=== PATIENT | female | born 1960 | race African-American/Black ===

== ENCOUNTER 2016-08-31 22:57 | Emergency (ER) | payer MEDICARE, OTHER ==
[~2016-08-31] VITALS: Ht 157.5 cm; Wt 118.4 kg
[~2016-08-31 22:57] MED LIST: AMLO10TA2 PO; ASPI81CH43 PO; Atorvastatin Calcium PO; BACL20TA PO; CAR3125T PO; CLOP75TA28 PO; ENA2.5T PO; FAM20T PO; FLUO20CA19 PO; FOLITAB45 OR; FURO40TA4 PO; GAB300C PO; HYDR-2601 PO; LOR05T PO; TRAM50TA2 PO
[2016-09-01 00:37] LABS: Basophils # (auto) 0.1 uL; Basophils % (auto) 1.3 % (0.0-2.0); DEFINITIVE VIEW TRANSMISSION; Eosinophils # (auto) 0.1 uL; Eosinophils % (auto) 0.9 % (0.0-7.0); Hemoglobin 12.2 g/dL (12.2-16.2); Lymphocytes # (auto) 2.7 uL; Lymphocytes % (auto) 34.6 % (10.0-50.0); Mean Corpuscular Hemoglobin 26.8 pg (28.0-32.0); Mean Corpuscular Hgb Conc. 31.3 g/dL (32.0-36.0); Mean Corpuscular Volume 85.6 fL (80.0-100.0); Mean Platelet Volume 10.9 fL (7.4-10.4); Monocytes # (auto) 0.5 uL; Monocytes % (auto) 6.7 % (0.0-12.0); Neutrophils # (auto) 4.3 uL; Neutrophils % (auto) 56.5 % (37.0-80.0); Platelet Count (auto) 260 10^3/uL (140-450); Red Cell Distribution Width 13.9 % (11.6-16.0); White Blood Cell 7.7 10^3/uL (4.4-10.8)
[2016-09-01 00:54] LABS: Albumin 2.9 g/dL (3.4-5.0); BUN/Creatinine Ratio 11.6; Calcium 8.7 mg/dL (8.5-10.1); Magnesium 1.8 mg/dL (1.6-2.6)
[2016-09-01 00:57] LABS: Bilirubin, Total 0.2 mg/dL (0.2-1.0); Total Protein 6.7 g/dL (6.4-8.2)
[2016-09-01] MEDS ORDERED: HYDROmorphone HCL 2 MG/ML VL IV ONE (02:00)
[2016-09-01] MEDS ORDERED: ONDANSETRON HCL 4 MG/2 ML VIAL IV ONE (02:00)
[2016-09-01] MEDS ORDERED: diphenhdrAMINE HCL 50 MG/1 ML VL IV ONE (02:00)
[2016-09-01 02:07] LABS: INR 0.96 (0.9-1.15); Partial Thromboplastin Time 27.6 sec (22.64-33.71); Prothrombin Time 9.9 sec (9.37-12.3)
[2016-09-01 02:13] LABS: B-Type Natriuretic Peptide 91.24 pg/mL (0-100); Temperature: 21.2 C (20.0-25.0)
[2016-09-01 03:05] VITALS: BP 152/97
[2016-09-01 04:04] LABS: Urine Bilirubin Negative (Negative); Urine Blood TRACE /uL (Negative); Urine Ketone Negative (Negative); Urine Mucus FEW (None Seen); Urine Nitrite Negative (Negative); Urine RBC 9 /hpf (0 - 4); Urine Squamous Epithelial Cell FEW /hpf (<5); Urine Urobilinogen Normal (Negative); Urine WBC Clumps PRESENT /hpf (None Seen); Urine pH 5.5 (5.0-8.0)
[2016-09-01 04:06] LABS: Urine Color Straw (Yellow); Urine Glucose 4+ mg/dL (Normal)
== END 2016-09-01 03:56 | disposition home or self-care (01) ==
LOC: EDBD 22:57 → ER 23:05
DX: R07.89 Other chest pain (principal); K29.70 Gastritis, unspecified, without bleeding; E11.65 Type 2 diabetes mellitus with hyperglycemia; R60.0 Localized edema; I25.2 Old myocardial infarction; Z86.73 Personal history of transient ischemic attack (TIA), and cerebral infarction without residual deficits; J44.9 Chronic obstructive pulmonary disease, unspecified; I50.9 Heart failure, unspecified; E11.22 Type 2 diabetes mellitus with diabetic chronic kidney disease; N18.9 Chronic kidney disease, unspecified; E78.5 Hyperlipidemia, unspecified; E66.01 Morbid (severe) obesity due to excess calories; Z68.42 Body mass index [BMI] 45.0-49.9, adult; E78.00 Pure hypercholesterolemia, unspecified; Z79.899 Other long term (current) drug therapy; Z79.82 Long term (current) use of aspirin
CPT/HCPCS: 36415; 71010; 80053; 81001; 83735; 83880; 84484; 85025; 85610; 85730; 93005; 96374; 96375; 99285; G0434; J1170; J1200; J2405

== ENCOUNTER 2017-02-27 21:14 | Emergency (ER) | payer MEDICARE, OTHER ==
[~2017-02-27] VITALS: Ht 157.5 cm; Wt 117.9 kg
[~2017-02-27 21:14] MED LIST changes: -GAB300C PO; +GABA-497 PO
[2017-02-27 21:58] LABS: Basophils # (auto) 0 uL; Basophils % (auto) 0.4 % (0.0-2.0); CONDITION Y; Eosinophils # (auto) 0.1 uL; Eosinophils % (auto) 0.5 % (0.0-7.0); Hematocrit 41.5 % (36.0-46.0); Hemoglobin 13.6 g/dL (12.2-16.2); Lymphocytes # (auto) 3.3 uL; Lymphocytes % (auto) 29.6 % (10.0-50.0); Mean Corpuscular Hemoglobin 27.8 pg (28.0-32.0); Mean Corpuscular Hgb Conc. 32.8 g/dL (32.0-36.0); Mean Corpuscular Volume 84.7 fL (80.0-100.0); Mean Platelet Volume 10.6 fL (7.4-10.4); Monocytes # (auto) 0.8 uL; Neutrophils # (auto) 6.9 uL; Neutrophils % (auto) 62.5 % (37.0-80.0); Platelet Count (auto) 310 10^3/uL (140-450); Red Cell Distribution Width 15.4 % (11.6-16.0)
[2017-02-27] MEDS ORDERED: SODIUM CHLORIDE 0.9% 1,000 ML IV ONE (22:00)
[2017-02-27 22:11] LABS: Albumin 3.4 g/dL (3.4-5.0); BUN/Creatinine Ratio 17.6; Calcium 9.2 mg/dL (8.5-10.1); Potassium 3.8 mmol/L (3.5-5.1)
[2017-02-27 22:14] LABS: Bilirubin, Total 0.5 mg/dL (0.2-1.0); Total Protein 7.8 g/dL (6.4-8.2)
[2017-02-27 22:43] VITALS: BP 138/75
[2017-02-27 23:48] LABS: INR 0.96 (0.9-1.15); Partial Thromboplastin Time 29.9 sec (22.64-33.71); Prothrombin Time 10.5 sec (9.37-12.3)
== END 2017-02-28 00:47 | disposition home or self-care (01) ==
LOC: EDBD 21:14 → ER 21:25
DX: N93.8 Other specified abnormal uterine and vaginal bleeding (principal); N95.0 Postmenopausal bleeding; I11.0 Hypertensive heart disease with heart failure; I25.10 Atherosclerotic heart disease of native coronary artery without angina pectoris; I50.9 Heart failure, unspecified; N18.9 Chronic kidney disease, unspecified; J44.9 Chronic obstructive pulmonary disease, unspecified; E11.9 Type 2 diabetes mellitus without complications; E78.5 Hyperlipidemia, unspecified; I25.2 Old myocardial infarction; Z79.899 Other long term (current) drug therapy; M32.9 Systemic lupus erythematosus, unspecified
CPT/HCPCS: 36415; 80053; 82962; 85025; 85610; 85730; 86850; 86900; 86901; 94761

== ENCOUNTER 2017-03-24 13:59 | Inpatient (IN) | payer MEDICARE ==
[~2017-03-24] VITALS: Ht 157.5 cm; Wt 132.5 kg
[2017-03-24 16:12] VITALS: BP 161/81
[2017-03-24] MEDS ORDERED: MORPHINE SULF INJ 2 MG/ML SYRINGE 1ML IV PRN (16:45)
[2017-03-24] MEDS ORDERED: NITROGLYCERIN 0.4 MG SL TAB SL PRN (16:45)
[2017-03-24] MEDS ORDERED: IBUP800T24 PO (17:13)
[2017-03-24] MEDS ORDERED: PERCOT PO (17:13)
[2017-03-24] MEDS ORDERED: PROM25TA5 OR (17:13)
[2017-03-24] MEDS ORDERED: DULA1INJ SC (17:13)
[2017-03-24] MEDS ORDERED: INSUINJ37 SUBCUT (17:13)
[2017-03-24] MEDS ORDERED: METF-370 PO (17:13)
[2017-03-24 17:45] LABS: Basophils # (auto) 0 uL; Basophils % (auto) 0.4 % (0.0-2.0); CONDITION Y; Eosinophils # (auto) 0 uL; Eosinophils % (auto) 0.4 % (0.0-7.0); Hematocrit 35.3 % (36.0-46.0); Hemoglobin 11.7 g/dL (12.2-16.2); Lymphocytes # (auto) 3.1 uL; Lymphocytes % (auto) 27.6 % (10.0-50.0); Mean Corpuscular Hemoglobin 28.2 pg (28.0-32.0); Mean Corpuscular Hgb Conc. 33.1 g/dL (32.0-36.0); Mean Corpuscular Volume 85.2 fL (80.0-100.0); Mean Platelet Volume 10.1 fL (7.4-10.4); Monocytes # (auto) 0.6 uL; Monocytes % (auto) 5.7 % (0.0-12.0); Neutrophils # (auto) 7.5 uL; Neutrophils % (auto) 65.9 % (37.0-80.0); Platelet Count (auto) 285 10^3/uL (140-450); Red Cell Distribution Width 14.9 % (11.6-16.0); White Blood Cell 11.4 10^3/uL (4.4-10.8)
[2017-03-24 18:00] LABS: INR 0.98 (0.9-1.15); Partial Thromboplastin Time 28.1 sec (22.64-33.71); Prothrombin Time 10.7 sec (9.37-12.3)
[2017-03-24 18:03] LABS: Albumin 2.9 g/dL (3.4-5.0); Calcium 8.6 mg/dL (8.5-10.1); Potassium 3.4 mmol/L (3.5-5.1)
[2017-03-24 18:07] LABS: Bilirubin, Total 0.4 mg/dL (0.2-1.0)
[2017-03-24] MEDS ORDERED: FUROSEMIDE 40 MG TAB PO SCH (18:15)
[2017-03-24] MEDS ORDERED: FUROSEMIDE 20 MG TAB PO SCH (18:15)
[2017-03-24] MEDS ORDERED: BISACODYL 5 MG EC TAB PO PRN ×2 (21:00→21:09)
[2017-03-24] MEDS ORDERED: LORazepam 0.5 MG TAB PO SCH (22:00)
[2017-03-24] MEDS ORDERED: FAMOTIDINE 20 MG TAB PO SCH (22:00)
[2017-03-24 22:08] VITALS: BP 169/85
[2017-03-24] MEDS: BACLOFEN 10 MG TAB PO SCH (22:32)
[2017-03-24] MEDS: ATORVASTATIN 20 MG TAB PO SCH (22:32)
[2017-03-24] MEDS: GABAPENTIN 300 MG CAP PO SCH (22:32)
[2017-03-24] MEDS: OXYCODONE W/ ACETAMINOPHEN 5/325MG TABLET PO PRN (22:36)
[2017-03-24] MEDS: PROMETHAZINE HCL 6.25 MG/5 ML ORAL SYRUP PO SCH (23:45)
[2017-03-24] MEDS: SODIUM CHLORIDE 0.9% 1,000 ML IV SCH (23:45)
[2017-03-24] MEDS: DIAZEPAM 2 MG TAB PO SCH (23:54)
[2017-03-25] MEDS ORDERED: DIAZ2TAB PO (00:27)
[2017-03-25 05:23] VITALS: BP 129/78
[2017-03-25] MEDS: GABAPENTIN 300 MG CAP PO SCH ×3 (05:25→21:56)
[2017-03-25] MEDS: BACLOFEN 10 MG TAB PO SCH ×3 (05:25→21:57)
[2017-03-25 05:52] LABS: Basophils # (auto) 0 uL; Basophils % (auto) 0.3 % (0.0-2.0); CONDITION Y; Eosinophils # (auto) 0.1 uL; Eosinophils % (auto) 0.8 % (0.0-7.0); Hematocrit 33.6 % (36.0-46.0); Hemoglobin 11.2 g/dL (12.2-16.2); Lymphocytes # (auto) 3.4 uL; Lymphocytes % (auto) 36.2 % (10.0-50.0); Mean Corpuscular Hemoglobin 28.8 pg (28.0-32.0); Mean Corpuscular Hgb Conc. 33.3 g/dL (32.0-36.0); Mean Corpuscular Volume 86.5 fL (80.0-100.0); Monocytes # (auto) 0.6 uL; Monocytes % (auto) 6.4 % (0.0-12.0); Neutrophils # (auto) 5.4 uL; Neutrophils % (auto) 56.3 % (37.0-80.0); Platelet Count (auto) 247 10^3/uL (140-450); Red Cell Distribution Width 14.9 % (11.6-16.0); White Blood Cell 9.5 10^3/uL (4.4-10.8)
[2017-03-25 06:04] LABS: INR 0.98 (0.9-1.15); Partial Thromboplastin Time 28.9 sec (22.64-33.71); Prothrombin Time 10.7 sec (9.37-12.3)
[2017-03-25 06:11] LABS: Albumin 2.7 g/dL (3.4-5.0); BUN/Creatinine Ratio 11.8; Calcium 8.3 mg/dL (8.5-10.1); Potassium 3.2 mmol/L (3.5-5.1)
[2017-03-25 06:13] LABS: Bilirubin, Total 0.5 mg/dL (0.2-1.0)
[2017-03-25] MEDS ORDERED: CARVEDILOL 12.5 MG TAB PO ONE (08:00)
[2017-03-25] MEDS ORDERED: POTASSIUM CHL 20 Meq TABLET PO ONE (08:00)
[2017-03-25] MEDS ORDERED: FAMOTIDINE 20 MG TAB ONE (09:08)
[2017-03-25 09:46] VITALS: BP 119/78
[2017-03-25] MEDS: LORazepam 0.5 MG TAB PO SCH (09:52)
[2017-03-25] MEDS: FAMOTIDINE 20 MG TAB PO SCH ×2 (09:52→21:56)
[2017-03-25] MEDS: CARVEDILOL 12.5 MG TAB PO SCH ×2 (09:53→21:55)
[2017-03-25] MEDS: FLUoxetine HCL 20 MG CAP PO SCH (09:53)
[2017-03-25] MEDS: metFORMIN HYDROCHLORIDE 500 MG TAB PO SCH (09:53)
[2017-03-25] MEDS: ASPirin 81 mg TAB PO SCH (09:54)
[2017-03-25] MEDS: ENALAPRIL MALEATE 2.5 MG TAB PO SCH ×2 (09:54→21:57)
[2017-03-25] MEDS: FOLIC ACID 1 MG TAB PO SCH (09:54)
[2017-03-25] MEDS ORDERED: POTASSIUM CHL 20 Meq TABLET PO SCH (10:00)
[2017-03-25] MEDS: INSULIN DETEMIR(LEVEMIR) 1unit/0.01ml Soln (100units/ml) SC SCH ×2 (10:12→23:31)
[2017-03-25] MEDS: SODIUM CHLORIDE 0.9% 1,000 ML IV SCH (12:45)
[2017-03-25 13:00] VITALS: BP 115/56
[2017-03-25] MEDS ORDERED: SIMETHICONE 40 MG/0.6 ML ORAL DROP PO PRN (15:30)
[2017-03-25] MEDS: HYDROcodone-ACET 10/325MG TAB PO PRN (16:07)
[2017-03-25 20:00] VITALS: BP 100/64
[2017-03-25] MEDS: OXYCODONE W/ ACETAMINOPHEN 5/325MG TABLET PO PRN (20:01)
[2017-03-25] MEDS: ATORVASTATIN 20 MG TAB PO SCH (21:56)
[2017-03-25] MEDS: PROMETHAZINE HCL 6.25 MG/5 ML ORAL SYRUP PO SCH (21:57)
[2017-03-25] MEDS: DIAZEPAM 2 MG TAB PO SCH (21:57)
[2017-03-25] MEDS ORDERED: INSULIN DETEMIR(LEVEMIR) 1unit/0.01ml Soln (100units/ml) SC SCH (22:00)
[2017-03-25 22:30] VITALS: BP 100/64
[2017-03-26 05:53] VITALS: BP 138/77
[2017-03-26] MEDS: GABAPENTIN 300 MG CAP PO SCH ×3 (06:00→22:08)
[2017-03-26] MEDS: BACLOFEN 10 MG TAB PO SCH ×3 (06:00→22:09)
[2017-03-26] MEDS ORDERED: ceFAZolin 1GM/50ML D5W 50 ML IV ONE (07:09)
[2017-03-26] MEDS: SODIUM CHLORIDE 0.9% 1,000 ML IV SCH (08:45)
[2017-03-26] MEDS: INSULIN DETEMIR(LEVEMIR) 1unit/0.01ml Soln (100units/ml) SC SCH ×2 (10:00→22:00)
[2017-03-26] MEDS: metFORMIN HYDROCHLORIDE 500 MG TAB PO SCH (10:00)
[2017-03-26] MEDS: LORazepam 0.5 MG TAB PO SCH (11:08)
[2017-03-26] MEDS: FAMOTIDINE 20 MG TAB PO SCH ×2 (11:08→22:08)
[2017-03-26] MEDS: ASPirin 81 mg TAB PO SCH (11:09)
[2017-03-26] MEDS: FLUoxetine HCL 20 MG CAP PO SCH (11:09)
[2017-03-26] MEDS: FOLIC ACID 1 MG TAB PO SCH (11:09)
[2017-03-26] MEDS: POTASSIUM CHL 10% (20 MEQ/15ML) ORAL SOLN PO SCH (11:11)
[2017-03-26] MEDS: ENALAPRIL MALEATE 2.5 MG TAB PO SCH ×2 (11:21→22:09)
[2017-03-26] MEDS: CARVEDILOL 12.5 MG TAB PO SCH ×2 (11:21→22:09)
[2017-03-26 11:25] LABS: Urine Bilirubin Negative (Negative); Urine Blood Negative /uL (Negative); Urine Color Yellow (Yellow); Urine Glucose Normal (Normal); Urine Ketone Negative (Negative); Urine Mucus MANY (None Seen); Urine RBC 2 /hpf (0 - 4); Urine Urobilinogen Normal (Negative); Urine pH 5.5 (5.0-8.0)
[2017-03-26 11:28] LABS: Urine Nitrite POSITIVE (Negative)
[2017-03-26 13:00] VITALS: BP 132/71
[2017-03-26] MEDS ORDERED: medroxyPROGESTERone ACETATE 5 MG TAB PO ONE (15:15)
[2017-03-26 16:49] VITALS: BP 139/64
[2017-03-26] MEDS: OXYCODONE W/ ACETAMINOPHEN 5/325MG TABLET PO PRN (20:32)
[2017-03-26 22:00] VITALS: BP 145/81
[2017-03-26] MEDS: PROMETHAZINE HCL 6.25 MG/5 ML ORAL SYRUP PO SCH (22:00)
[2017-03-26] MEDS: medroxyPROGESTERone ACETATE 5 MG TAB PO SCH (22:08)
[2017-03-26] MEDS: ATORVASTATIN 20 MG TAB PO SCH (22:09)
[2017-03-26] MEDS: DIAZEPAM 2 MG TAB PO SCH (22:10)
[2017-03-27] MEDS: SODIUM CHLORIDE 0.9% 1,000 ML IV SCH (04:58)
[2017-03-27] MEDS: GABAPENTIN 300 MG CAP PO SCH ×3 (05:42→21:56)
[2017-03-27] MEDS: BACLOFEN 10 MG TAB PO SCH ×3 (05:42→21:56)
[2017-03-27] MEDS: OXYCODONE W/ ACETAMINOPHEN 5/325MG TABLET PO PRN ×2 (05:43→23:31)
[2017-03-27] MEDS: medroxyPROGESTERone ACETATE 5 MG TAB PO SCH ×3 (05:43→21:56)
[2017-03-27 06:00] VITALS: BP 110/65
[2017-03-27 09:00] VITALS: BP 160/78
[2017-03-27] MEDS: FLUoxetine HCL 20 MG CAP PO SCH (09:35)
[2017-03-27] MEDS: FAMOTIDINE 20 MG TAB PO SCH ×2 (09:35→21:58)
[2017-03-27] MEDS: ENALAPRIL MALEATE 2.5 MG TAB PO SCH ×2 (09:35→21:58)
[2017-03-27] MEDS: LORazepam 0.5 MG TAB PO SCH (09:36)
[2017-03-27] MEDS: FOLIC ACID 1 MG TAB PO SCH (09:36)
[2017-03-27] MEDS: ASPirin 81 mg TAB PO SCH (09:36)
[2017-03-27] MEDS: CARVEDILOL 12.5 MG TAB PO SCH ×2 (09:37→21:57)
[2017-03-27] MEDS: metFORMIN HYDROCHLORIDE 500 MG TAB PO SCH (09:37)
[2017-03-27] MEDS: INSULIN DETEMIR(LEVEMIR) 1unit/0.01ml Soln (100units/ml) SC SCH ×2 (09:37→22:06)
[2017-03-27] MEDS: POTASSIUM CHL 10% (20 MEQ/15ML) ORAL SOLN PO SCH (09:42)
[2017-03-27 13:00] VITALS: BP 121/70
[2017-03-27] MEDS ORDERED: LIDOCAINE 2%HCL (LOCAL ANESTH.) INJ 20ML MDV ONE (14:29)
[2017-03-27] MEDS ORDERED: IOHEXOL 350 MG/ML 100ML IJ ONE (14:29)
[2017-03-27] MEDS ORDERED: fentaNYL CITRATE 100 MCG/2 ML VL ONE (15:18)
[2017-03-27] MEDS ORDERED: ANGIOMAX 250 MG VIAL IV ONE (15:18)
[2017-03-27] MEDS ORDERED: MIDAZOLAM HCL 1MG/1ML-2 ML VIAL ONE (15:18)
[2017-03-27] MEDS ORDERED: SODIUM CHL 0.9% 50 ML ONE (15:18)
[2017-03-27] MEDS ORDERED: LABETALOL HCL 5 MG/ML 4ML SYRINGE IV ONE (15:43)
[2017-03-27] MEDS: SOD CHL 0.45% 1,000 ML IV SCH (16:30)
[2017-03-27] MEDS: HYDROcodone-ACET 10/325MG TAB PO PRN (18:59)
[2017-03-27 20:00] VITALS: BP 146/71
[2017-03-27] MEDS: ATORVASTATIN 20 MG TAB PO SCH (21:56)
[2017-03-27] MEDS: DIAZEPAM 2 MG TAB PO SCH (21:58)
[2017-03-27] MEDS: PROMETHAZINE HCL 6.25 MG/5 ML ORAL SYRUP PO SCH (21:59)
[2017-03-27 22:00] VITALS: BP 146/71
[2017-03-27 23:00] VITALS: BP 125/74
[2017-03-28] MEDS: SOD CHL 0.45% 1,000 ML IV SCH (03:02)
[2017-03-28 05:00] VITALS: BP 100/67
[2017-03-28] MEDS: GABAPENTIN 300 MG CAP PO SCH (06:09)
[2017-03-28] MEDS: medroxyPROGESTERone ACETATE 5 MG TAB PO SCH (06:09)
[2017-03-28] MEDS: BACLOFEN 10 MG TAB PO SCH (06:10)
[2017-03-28] MEDS: OXYCODONE W/ ACETAMINOPHEN 5/325MG TABLET PO PRN (06:10)
[2017-03-28 08:00] VITALS: BP 129/63
[2017-03-28 09:00] VITALS: BP 124/63
[2017-03-28] MEDS: INSULIN DETEMIR(LEVEMIR) 1unit/0.01ml Soln (100units/ml) SC SCH (10:11)
[2017-03-28] MEDS: FOLIC ACID 1 MG TAB PO SCH (10:12)
[2017-03-28] MEDS: FLUoxetine HCL 20 MG CAP PO SCH (10:12)
[2017-03-28] MEDS: ASPirin 81 mg TAB PO SCH (10:12)
[2017-03-28] MEDS: FAMOTIDINE 20 MG TAB PO SCH (10:12)
[2017-03-28] MEDS: metFORMIN HYDROCHLORIDE 500 MG TAB PO SCH (10:13)
[2017-03-28] MEDS: LORazepam 0.5 MG TAB PO SCH (10:13)
[2017-03-28] MEDS: ENALAPRIL MALEATE 2.5 MG TAB PO SCH (10:14)
[2017-03-28] MEDS: CARVEDILOL 12.5 MG TAB PO SCH (10:14)
[2017-03-28] MEDS: POTASSIUM CHL 10% (20 MEQ/15ML) ORAL SOLN PO SCH (11:27)
[2017-03-28 13:00] VITALS: BP 120/69
[2017-03-28 15:34] VITALS: BP 120/69
[2017-03-28] MEDS: HYDROcodone-ACET 10/325MG TAB PO PRN (17:26)
== END 2017-03-28 19:45 | disposition home or self-care (01) | DRG 760 ==
LOC: TELE-E-ADS 13:59 → TELE-CENTR 19:15
PROVIDERS: ADMIT Obstetrics & Gynecology; ATTEND Specialist
PROC: 4A023N7 Measurement of Cardiac Sampling and Pressure, Left Heart, Percutaneous Approach (ICD-10-PCS; principal; 2017-03-27)
PROC: B2111ZZ Fluoroscopy of Multiple Coronary Arteries using Low Osmolar Contrast (ICD-10-PCS; 2017-03-27)
PROC: B2151ZZ Fluoroscopy of Left Heart using Low Osmolar Contrast (ICD-10-PCS; 2017-03-27)
PROC: B41F1ZZ Fluoroscopy of Right Lower Extremity Arteries using Low Osmolar Contrast (ICD-10-PCS; 2017-03-27)
DX: N93.9 Abnormal uterine and vaginal bleeding, unspecified (principal); G82.20 Paraplegia, unspecified; Z68.43 Body mass index [BMI] 50.0-59.9, adult; N39.0 Urinary tract infection, site not specified; I25.10 Atherosclerotic heart disease of native coronary artery without angina pectoris; N92.0 Excessive and frequent menstruation with regular cycle; E87.6 Hypokalemia; B96.20 Unspecified Escherichia coli [E. coli] as the cause of diseases classified elsewhere; D50.0 Iron deficiency anemia secondary to blood loss (chronic); E11.9 Type 2 diabetes mellitus without complications; I11.0 Hypertensive heart disease with heart failure; I25.9 Chronic ischemic heart disease, unspecified; I50.9 Heart failure, unspecified; M32.9 Systemic lupus erythematosus, unspecified; E66.01 Morbid (severe) obesity due to excess calories; N85.8 Other specified noninflammatory disorders of uterus; Z86.74 Personal history of sudden cardiac arrest
CPT/HCPCS: 36415; 71010; 80053; 81001; 82962; 85025; 85610; 85730; 87086; 87088; 87186; 93005; 93306; 93458; 99152; J0690; J1815; J2250; J3490

== ENCOUNTER 2017-04-11 19:35 | Inpatient (IN) | payer MEDICARE ==
[~2017-04-11] VITALS: Ht 157.5 cm; Wt 127.6 kg
[~2017-04-11 19:35] MED LIST changes: -AMLO10TA2 PO; -CAR3125T PO; -CLOP75TA28 PO; +DIAZ2TAB PO; +DULA1INJ SC; -ENA2.5T PO; -FURO40TA4 PO; -HYDR-2601 PO; +INSUINJ37 SUBCUT; +METF-370 PO; +PERCOT PO; +PROM25TA5 OR; -TRAM50TA2 PO
[2017-04-11 20:35] LABS: Basophils # (auto) 0.1 uL; Basophils % (auto) 0.4 % (0.0-2.0); CONDITION Y; Eosinophils # (auto) 0.2 uL; Eosinophils % (auto) 1.6 % (0.0-7.0); Hematocrit 35.9 % (36.0-46.0); Hemoglobin 11.6 g/dL (12.2-16.2); Lymphocytes # (auto) 2.7 uL; Lymphocytes % (auto) 22.6 % (10.0-50.0); Mean Corpuscular Hemoglobin 28.1 pg (28.0-32.0); Mean Corpuscular Hgb Conc. 32.3 g/dL (32.0-36.0); Mean Corpuscular Volume 87.1 fL (80.0-100.0); Mean Platelet Volume 9.9 fL (7.4-10.4); Monocytes # (auto) 0.9 uL; Monocytes % (auto) 7.9 % (0.0-12.0); Neutrophils % (auto) 67.5 % (37.0-80.0); Platelet Count (auto) 279 10^3/uL (140-450); Red Cell Distribution Width 16.1 % (11.6-16.0); White Blood Cell 11.9 10^3/uL (4.4-10.8)
[2017-04-11 20:57] LABS: Calcium 8.4 mg/dL (8.5-10.1); Potassium 3.9 mmol/L (3.5-5.1)
[2017-04-11 21:07] LABS: BUN/Creatinine Ratio 4.1; Bilirubin, Total 0.4 mg/dL (0.2-1.0); Total Protein 6.7 g/dL (6.4-8.2)
[2017-04-11] MEDS ORDERED: SODIUM CHLORIDE 0.9% 1,000 ML IV ONE (21:15)
[2017-04-11 21:35] LABS: Amylase 30 U/L (25-115)
[2017-04-11 21:39] LABS: Urine Bilirubin Negative (Negative); Urine Blood Negative /uL (Negative); Urine Color Yellow (Yellow); Urine Glucose 3+ mg/dL (Normal); Urine Ketone Negative (Negative); Urine Mucus FEW (None Seen); Urine Nitrite Negative (Negative); Urine RBC 6 /hpf (0 - 4); Urine Squamous Epithelial Cell MOD /hpf (<5); Urine Urobilinogen Normal (Negative); Urine pH 6.5 (5.0-8.0)
[2017-04-12] VITALS (7 sets, daily range): BP systolic 120–154; BP diastolic 48–93
[2017-04-12] MEDS ORDERED: LACTULOSE 20Gm/30ML SOLN PO ONE
[2017-04-12] MEDS ORDERED: cefTRIAXone 1GM/50ML D5W 50 ML IV ONE (01:00)
[2017-04-12] MEDS ORDERED: ONDANSETRON HCL 4 MG/2 ML VIAL IV PRN (01:00)
[2017-04-12] MEDS ORDERED: DEXTROSE (50%) 50ML SYRG IV PRN (01:00)
[2017-04-12] MEDS ORDERED: ACETAMINOPHEN 325 MG TAB PO PRN (01:00)
[2017-04-12] MEDS ORDERED: FLEET ENEMA(ADULT) 135 ML PR ONE (01:00)
[2017-04-12] MEDS ORDERED: cloNIDine HCL 0.1 MG TAB PO PRN (01:00)
[2017-04-12] MEDS ORDERED: SODIUM CHLORIDE 0.9% 500 ML IV ONE (01:00)
[2017-04-12] MEDS ORDERED: TEMAZEPAM 15 MG CAP PO PRN (01:00)
[2017-04-12] MEDS: HYDROcodone-ACET 5/325MG TAB PO PRN (03:07)
[2017-04-12] MEDS: SODIUM CHLORIDE 0.9% 1,000 ML IV SCH ×2 (05:14→15:17)
[2017-04-12] MEDS: ACCU-CHEK COMFORT CURVE STRIP VI SCH ×3 (06:00→17:43)
[2017-04-12] MEDS ORDERED: GABAPENTIN 300 MG CAP PO SCH (06:00)
[2017-04-12] MEDS: InsuLIN REG 1unit/0.01ml Soln (100units/ml) SC SCH ×3 (06:32→17:53)
[2017-04-12] MEDS: FLUoxetine HCL 20 MG CAP PO SCH (10:00)
[2017-04-12 10:06] LABS: Base Excess -4.8 mmol/L (-2.0-2.0); Blood 02Sat 98.8 % (96-100); Blood COHb 0.3 % (0.5-1.5); Blood MetHb 0.6 % (0.0-1.5); HCO3 20.3 mmol/L (22-26.0); HHb 1.2 % (0.0-5.0); MODE nc; O2Hb 97.9 % (94.0-97.0); PCO2 37.7 mmHg (35.0-45.0); PCO2(T) 37.7 mmHg (35.0-45.0); PO2 184.9 mmHg (80.0-100.0); PO2(T) 184.9 mmHg (80.0-100.0); Sample Type Arterial; pH 7.349 (7.350-7.450)
[2017-04-12 11:26] LABS: Basophils # (auto) 0 uL; Basophils % (auto) 0.2 % (0.0-2.0); CONDITION Y; Eosinophils # (auto) 0.1 uL; Eosinophils % (auto) 0.6 % (0.0-7.0); Hemoglobin 11.5 g/dL (12.2-16.2); Lymphocytes # (auto) 1.2 uL; Lymphocytes % (auto) 11.2 % (10.0-50.0); Mean Corpuscular Hemoglobin 28.2 pg (28.0-32.0); Mean Corpuscular Hgb Conc. 32.8 g/dL (32.0-36.0); Mean Corpuscular Volume 86.1 fL (80.0-100.0); Mean Platelet Volume 10.1 fL (7.4-10.4); Monocytes # (auto) 0.8 uL; Monocytes % (auto) 7.9 % (0.0-12.0); Neutrophils # (auto) 8.5 uL; Neutrophils % (auto) 80.1 % (37.0-80.0); Platelet Count (auto) 278 10^3/uL (140-450); Red Cell Distribution Width 15.8 % (11.6-16.0); White Blood Cell 10.6 10^3/uL (4.4-10.8)
[2017-04-12 11:34] LABS: BUN/Creatinine Ratio 3.6; Calcium 8.1 mg/dL (8.5-10.1)
[2017-04-12] MEDS: PANTOPRAZOLE 40 MG/10 ML VIAL IV SCH (11:50)
[2017-04-12] MEDS: ASPirin 81 mg TAB PO SCH ×2 (12:00→12:38)
[2017-04-12] MEDS: ENOXAPARIN SOD 30 MG/0.3 ML SYRINGE SC SCH (12:08)
[2017-04-12] MEDS: MORPHINE SULF INJ 2 MG/ML SYRINGE 1ML IV PRN ×3 (12:09→22:06)
[2017-04-12] MEDS ORDERED: ATORVASTATIN 20 MG TAB PO SCH (22:00)
[2017-04-12] MEDS: ATORVASTATIN 20 MG TAB PO SCH (22:05)
[2017-04-13] MEDS: ACCU-CHEK COMFORT CURVE STRIP VI SCH ×4 (00:30→17:59)
[2017-04-13 05:00] VITALS: BP 137/66
[2017-04-13] MEDS: SODIUM CHLORIDE 0.9% 1,000 ML IV SCH ×2 (05:51→13:32)
[2017-04-13] MEDS: InsuLIN REG 1unit/0.01ml Soln (100units/ml) SC SCH ×4 (05:53→18:48)
[2017-04-13 06:34] LABS: Basophils # (auto) 0 uL; Basophils % (auto) 0.4 % (0.0-2.0); CONDITION Y; Eosinophils # (auto) 0.1 uL; Eosinophils % (auto) 1.1 % (0.0-7.0); Hemoglobin 9.9 g/dL (12.2-16.2); Lymphocytes # (auto) 2.5 uL; Lymphocytes % (auto) 25.4 % (10.0-50.0); Mean Corpuscular Hemoglobin 28.6 pg (28.0-32.0); Mean Corpuscular Volume 86.7 fL (80.0-100.0); Mean Platelet Volume 10.4 fL (7.4-10.4); Monocytes # (auto) 0.9 uL; Monocytes % (auto) 8.7 % (0.0-12.0); Neutrophils # (auto) 6.5 uL; Neutrophils % (auto) 64.4 % (37.0-80.0); Platelet Count (auto) 270 10^3/uL (140-450); Red Cell Distribution Width 15.9 % (11.6-16.0)
[2017-04-13 06:51] LABS: Albumin 2.4 g/dL (3.4-5.0); BUN/Creatinine Ratio 3.3; Bilirubin, Total 0.5 mg/dL (0.2-1.0); Calcium 7.5 mg/dL (8.5-10.1); Phosphorus 6.8 mg/dL (2.5-4.90); Potassium 3.7 mmol/L (3.5-5.1); Total Protein 5.8 g/dL (6.4-8.2)
[2017-04-13 09:00] VITALS: BP 114/66
[2017-04-13] MEDS: PANTOPRAZOLE 40 MG/10 ML VIAL IV SCH (09:36)
[2017-04-13] MEDS: MORPHINE SULF INJ 2 MG/ML SYRINGE 1ML IV PRN (09:37)
[2017-04-13] MEDS: FLUoxetine HCL 20 MG CAP PO SCH (09:53)
[2017-04-13] MEDS: ASPirin 81 mg TAB PO SCH (09:54)
[2017-04-13] MEDS: ENOXAPARIN SOD 30 MG/0.3 ML SYRINGE SC SCH (10:00)
[2017-04-13 13:00] VITALS: BP 134/80
[2017-04-13 17:00] VITALS: BP 136/78
[2017-04-13 20:00] VITALS: BP 118/68
[2017-04-13] MEDS: ATORVASTATIN 20 MG TAB PO SCH (21:27)
[2017-04-13] MEDS: HYDROcodone-ACET 5/325MG TAB PO PRN (21:28)
[2017-04-13] MEDS ORDERED: cefTRIAXone 1GM/50ML D5W 50 ML IV SCH (22:00)
[2017-04-13 22:36] VITALS: BP 118/68
[2017-04-14] VITALS (7 sets, daily range): BP systolic 133–153; BP diastolic 78–96
[2017-04-14] MEDS: ACCU-CHEK COMFORT CURVE STRIP VI SCH ×4 (00:24→17:48)
[2017-04-14] MEDS: InsuLIN REG 1unit/0.01ml Soln (100units/ml) SC SCH ×4 (00:25→18:07)
[2017-04-14 05:53] LABS: Basophils # (auto) 0 uL; Basophils % (auto) 0.4 % (0.0-2.0); CONDITION Y; Eosinophils # (auto) 0.1 uL; Eosinophils % (auto) 1.3 % (0.0-7.0); Hematocrit 32.6 % (36.0-46.0); Hemoglobin 10.6 g/dL (12.2-16.2); Lymphocytes # (auto) 2.3 uL; Lymphocytes % (auto) 26.3 % (10.0-50.0); Mean Corpuscular Hemoglobin 28.3 pg (28.0-32.0); Mean Corpuscular Hgb Conc. 32.4 g/dL (32.0-36.0); Mean Corpuscular Volume 87.4 fL (80.0-100.0); Mean Platelet Volume 10.3 fL (7.4-10.4); Monocytes # (auto) 0.7 uL; Monocytes % (auto) 7.8 % (0.0-12.0); Neutrophils # (auto) 5.5 uL; Neutrophils % (auto) 64.2 % (37.0-80.0); Platelet Count (auto) 276 10^3/uL (140-450); White Blood Cell 8.6 10^3/uL (4.4-10.8)
[2017-04-14 06:02] LABS: BUN/Creatinine Ratio 4.3; Potassium 3.7 mmol/L (3.5-5.1)
[2017-04-14 09:25] LABS: Temperature: 22.9 C (20.0-25.0)
[2017-04-14] MEDS: FLUoxetine HCL 20 MG CAP PO SCH (09:48)
[2017-04-14] MEDS: PANTOPRAZOLE 40 MG/10 ML VIAL IV SCH (09:48)
[2017-04-14] MEDS: ENOXAPARIN SOD 30 MG/0.3 ML SYRINGE SC SCH (09:49)
[2017-04-14] MEDS: HYDROcodone-ACET 5/325MG TAB PO PRN (09:49)
[2017-04-14] MEDS: ASPirin 81 mg TAB PO SCH (09:49)
[2017-04-14 11:07] LABS: Temperature: 22.7 C (20.0-25.0)
[2017-04-14] MEDS: SODIUM CHLORIDE 0.9% 1,000 ML IV SCH (12:16)
[2017-04-14] MEDS ORDERED: OXYCODONE W/ ACETAMINOPHEN 5/325MG TABLET PO SCH (16:00)
[2017-04-14] MEDS: GABAPENTIN 300 MG CAP PO SCH (17:47)
[2017-04-14] MEDS: OXYCODONE W/ ACETAMINOPHEN 5/325MG TABLET PO SCH (17:48)
[2017-04-15] MEDS: GABAPENTIN 300 MG CAP PO SCH ×3 (00:18→14:53)
[2017-04-15] MEDS: ATORVASTATIN 20 MG TAB PO SCH (00:18)
[2017-04-15] MEDS: OXYCODONE W/ ACETAMINOPHEN 5/325MG TABLET PO SCH ×3 (00:18→14:53)
[2017-04-15] MEDS: ACCU-CHEK COMFORT CURVE STRIP VI SCH ×3 (00:19→11:59)
[2017-04-15] MEDS: SODIUM CHLORIDE 0.9% 1,000 ML IV SCH ×2 (00:29→14:53)
[2017-04-15 05:00] VITALS: BP 149/71
[2017-04-15 06:31] LABS: BUN/Creatinine Ratio 5.6; Calcium 8.5 mg/dL (8.5-10.1); Potassium 3.2 mmol/L (3.5-5.1)
[2017-04-15] MEDS: InsuLIN REG 1unit/0.01ml Soln (100units/ml) SC SCH ×3 (06:48→11:59)
[2017-04-15] MEDS ORDERED: POTASSIUM CHL 20 Meq TABLET PO ONE (07:45)
[2017-04-15] MEDS: HYDROcodone-ACET 5/325MG TAB PO PRN ×2 (08:32→17:48)
[2017-04-15 09:00] VITALS: BP 175/81
[2017-04-15] MEDS: ASPirin 81 mg TAB PO SCH (10:07)
[2017-04-15] MEDS: PANTOPRAZOLE 40 MG/10 ML VIAL IV SCH (10:07)
[2017-04-15] MEDS: FLUoxetine HCL 20 MG CAP PO SCH (10:07)
[2017-04-15] MEDS: ENOXAPARIN SOD 30 MG/0.3 ML SYRINGE SC SCH (10:08)
[2017-04-15 13:00] VITALS: BP 115/64
[2017-04-15 14:10] VITALS: BP 146/71
== END 2017-04-15 18:30 | disposition home health service (06) | DRG 682 ==
LOC: ER 19:35 → EDBD 19:35 → OVERFLOW 19:36 → EAST 04-12 02:10 → TELE-EAST 04-12 02:32
PROVIDERS: ADMIT Nurse Practitioner; ATTEND Internal Medicine Pulmonary Disease
DX: N17.0 Acute kidney failure with tubular necrosis (principal); R53.2 Functional quadriplegia; E10.22 Type 1 diabetes mellitus with diabetic chronic kidney disease; M48.04 Spinal stenosis, thoracic region; I13.0 Hypertensive heart and chronic kidney disease with heart failure and stage 1 through stage 4 chronic kidney disease, or unspecified chronic kidney disease; I50.9 Heart failure, unspecified; G95.9 Disease of spinal cord, unspecified; N39.0 Urinary tract infection, site not specified; E66.01 Morbid (severe) obesity due to excess calories; E78.00 Pure hypercholesterolemia, unspecified; E10.65 Type 1 diabetes mellitus with hyperglycemia; E78.5 Hyperlipidemia, unspecified; G89.29 Other chronic pain; I25.10 Atherosclerotic heart disease of native coronary artery without angina pectoris; J44.9 Chronic obstructive pulmonary disease, unspecified; K59.00 Constipation, unspecified; K76.0 Fatty (change of) liver, not elsewhere classified; M47.814 Spondylosis without myelopathy or radiculopathy, thoracic region; N18.3 Chronic kidney disease, stage 3 (moderate); R31.29 Other microscopic hematuria; Z79.82 Long term (current) use of aspirin; Z80.1 Family history of malignant neoplasm of trachea, bronchus and lung; Z80.49 Family history of malignant neoplasm of other genital organs; I25.2 Old myocardial infarction; Z82.3 Family history of stroke; Z82.49 Family history of ischemic heart disease and other diseases of the circulatory system; Z83.3 Family history of diabetes mellitus; Z86.73 Personal history of transient ischemic attack (TIA), and cerebral infarction without residual deficits
CPT/HCPCS: 36415; 36600; 51702; 70450; 72128; 74176; 80048; 80053; 80307; 81001; 82150; 82306; 82550; 82570; 82607; 82746; 82805; 82962; 83605; 83690; 84100; 84156; 84300; 84439; 84443; 84484; 85025; 87040; 87081; 87086; 87493; 93005; 95819; 96361; 96365; C9113; J0696; J1815

== ENCOUNTER 2017-04-18 09:35 | Emergency (ER) | payer MEDICARE ==
[~2017-04-18] VITALS: Ht 160 cm; Wt 57.6 kg
[2017-04-18] MEDS ORDERED: cloNIDine HCL 0.1 MG TAB PO ONE ×2 (10:30→12:00)
[2017-04-18 11:13] LABS: Basophils # (auto) 0 uL; Basophils % (auto) 0.5 % (0.0-2.0); CONDITION Y; Eosinophils # (auto) 0.1 uL; Eosinophils % (auto) 0.8 % (0.0-7.0); Hematocrit 35.1 % (36.0-46.0); Hemoglobin 11.5 g/dL (12.2-16.2); Lymphocytes # (auto) 1.6 uL; Lymphocytes % (auto) 19.9 % (10.0-50.0); Mean Corpuscular Hemoglobin 28.2 pg (28.0-32.0); Mean Corpuscular Hgb Conc. 32.7 g/dL (32.0-36.0); Mean Corpuscular Volume 86.2 fL (80.0-100.0); Mean Platelet Volume 10.1 fL (7.4-10.4); Monocytes # (auto) 0.5 uL; Monocytes % (auto) 5.7 % (0.0-12.0); Neutrophils % (auto) 73.1 % (37.0-80.0); Platelet Count (auto) 303 10^3/uL (140-450); Red Cell Distribution Width 15.2 % (11.6-16.0); White Blood Cell 8.2 10^3/uL (4.4-10.8)
[2017-04-18 11:36] LABS: Alkaline Phosphatase 75 U/L (45-117); Anion Gap 7 (5-15); Aspartate Aminotransferase 8 U/L (15-37); BUN/Creatinine Ratio 8.4; Bilirubin, Total 0.3 mg/dL (0.2-1.0); Blood Urea Nitrogen 8 mg/dL (7-18); Calcium 8.7 mg/dL (8.5-10.1); Carbon Dioxide 27 mmol/L (21-32); Chloride 106 mmol/L (98-107); GFR African American 78 mL/min; GFR Non-African American 65 mL/min; Glucose 205 mg/dL (74-106); Magnesium 1.6 mg/dL (1.6-2.6); Potassium 3.7 mmol/L (3.5-5.1); Sodium 140 mmol/L (136-145); Total Protein 7.1 g/dL (6.4-8.2)
[2017-04-18 11:37] LABS: B-Type Natriuretic Peptide 59.94 pg/mL (0-100)
[2017-04-18 11:47] LABS: Temperature: 24.3 C (20.0-25.0)
[2017-04-18 13:00] VITALS: BP 181/90
[2017-04-18 14:15] LABS: Urine Bilirubin Negative (Negative); Urine Blood TRACE /uL (Negative); Urine Color Yellow (Yellow); Urine Glucose Normal (Normal); Urine Ketone Negative (Negative); Urine Mucus FEW (None Seen); Urine Nitrite Negative (Negative); Urine RBC 5 /hpf (0 - 4); Urine Squamous Epithelial Cell FEW /hpf (<5); Urine Urobilinogen Normal (Negative)
== END 2017-04-18 14:13 | disposition home or self-care (01) ==
LOC: EDBD 09:35 → ER 09:35
DX: N95.0 Postmenopausal bleeding (principal); N39.0 Urinary tract infection, site not specified; I25.10 Atherosclerotic heart disease of native coronary artery without angina pectoris; J44.9 Chronic obstructive pulmonary disease, unspecified; I25.2 Old myocardial infarction; I12.9 Hypertensive chronic kidney disease with stage 1 through stage 4 chronic kidney disease, or unspecified chronic kidney disease; E11.22 Type 2 diabetes mellitus with diabetic chronic kidney disease; N18.9 Chronic kidney disease, unspecified; I50.9 Heart failure, unspecified; Z86.73 Personal history of transient ischemic attack (TIA), and cerebral infarction without residual deficits; Z79.4 Long term (current) use of insulin; Z79.82 Long term (current) use of aspirin
CPT/HCPCS: 36415; 71010; 80053; 81001; 82962; 83735; 83880; 84484; 85025; 93005; 94761

== ENCOUNTER 2017-12-29 17:47 | Emergency (ER) | payer MEDICARE, OTHER ==
[~2017-12-29] VITALS: Ht 157.5 cm; Wt 117.9 kg
[~2017-12-29 17:47] MED LIST changes: +AMLO5TAB2 PO; +BISA-4 PO; +CIPR-173 PO; -DIAZ2TAB PO; +FLUC100T34 PO; +FLUC200T50 PO; +FURO40TA4 PO; -GABA-497 PO; +GABA300C11 PO; +LEVO-28 PO; -LOR05T PO; +LORA-654 PO; +MEDR10TA9 PO; +ONDA4TAB5 PO; +PROG200C6 PO; -PROM25TA5 OR; +PROM25TA5 PO; +TRIATAB3 PO
[2017-12-29 17:56] VITALS: BP 187/96
[2017-12-29 19:03] LABS: Alanine Aminotransferase 17 U/L (13-56); Albumin 2.9 g/dL (3.4-5.0); Anion Gap 9 (5-15); Aspartate Aminotransferase 13 U/L (15-37); BUN/Creatinine Ratio 14.5; Blood Urea Nitrogen 8 mg/dL (7-18); Calcium 8.5 mg/dL (8.5-10.1); Carbon Dioxide 26 mmol/L (21-32); Chloride 105 mmol/L (98-107); GFR African American 147 mL/min; GFR Non-African American 122 mL/min; Glucose 199 mg/dL (74-106); Potassium 3.6 mmol/L (3.5-5.1); Sodium 140 mmol/L (136-145)
[2017-12-29 19:06] LABS: Basophils # (auto) 0 uL; Basophils % (auto) 0.5 % (0.0-2.0); Eosinophils # (auto) 0.1 uL; Eosinophils % (auto) 0.8 % (0.0-7.0); Hematocrit 34.6 % (36.0-46.0); Hemoglobin 11.2 g/dL (12.2-16.2); Lymphocytes # (auto) 3.2 uL; Lymphocytes % (auto) 33.1 % (10.0-50.0); Mean Corpuscular Hgb Conc. 32.3 g/dL (32.0-36.0); Mean Corpuscular Volume 83.6 fL (80.0-100.0); Monocytes # (auto) 0.6 uL; Monocytes % (auto) 6.1 % (0.0-12.0); Neutrophils # (auto) 5.7 uL; Neutrophils % (auto) 59.5 % (37.0-80.0); Nucleated Red Blood Cells % 0.1 %; Platelet Count (auto) 267 10^3/uL (140-450); Red Blood Cells 4.14 10^6/uL (4.0-5.20); Red Cell Distribution Width 14.9 % (11.8-14.3); White Blood Cell 9.6 10^3/uL (4.4-10.8)
[2017-12-29 19:07] LABS: Alkaline Phosphatase 80 U/L (45-117); Bilirubin, Total 0.3 mg/dL (0.2-1.0); Total Protein 6.9 g/dL (6.4-8.2)
== END 2017-12-30 00:09 | disposition left against medical advice (07) ==
LOC: EDBD 17:47 → ER 17:47
DX: R53.1 Weakness (principal); Z53.21 Procedure and treatment not carried out due to patient leaving prior to being seen by health care provider
CPT/HCPCS: 36415; 80053; 84484; 85025; 93005

== ENCOUNTER 2018-06-01 00:50 | Emergency (ER) | payer MEDICARE, OTHER ==
[~2018-06-01] VITALS: Ht 167.6 cm; Wt 108.9 kg
[~2018-06-01 00:50] MED LIST changes: +AMLO5TAB13 PO; -AMLO5TAB2 PO
[2018-06-01 02:17] LABS: Basophils # (auto) 0.1 uL; Eosinophils # (auto) 0.1 uL; Lymphocytes # (auto) 2.4 uL; Mean Corpuscular Hgb Conc. 31.3 g/dL (32.0-36.0); Mean Corpuscular Volume 84.5 fL (80.0-100.0); Neutrophils # (auto) 6.3 uL; Nucleated Red Blood Cells % 0.1 %; Red Cell Distribution Width 14.7 % (11.8-14.3); White Blood Cell 9.4 10^3/uL (4.4-10.8)
[2018-06-01 02:19] LABS: Basophils % (auto) 0.8 % (0.0-2.0); Hematocrit 38.1 % (36.0-46.0); Hemoglobin 11.9 g/dL (12.2-16.2); Lymphocytes % (auto) 25.3 % (10.0-50.0); Monocytes # (auto) 0.5 uL; Monocytes % (auto) 5.8 % (0.0-12.0); Neutrophils % (auto) 67.1 % (37.0-80.0); Platelet Count (auto) 235 10^3/uL (140-450); Red Blood Cells 4.51 10^6/uL (4.0-5.20)
[2018-06-01 02:33] LABS: Alanine Aminotransferase 17 U/L (13-56); Albumin 2.9 g/dL (3.4-5.0); Anion Gap 8 (5-15); Aspartate Aminotransferase 9 U/L (15-37); BUN/Creatinine Ratio 12.3; Blood Urea Nitrogen 9 mg/dL (7-18); Calcium 8.3 mg/dL (8.5-10.1); Carbon Dioxide 27 mmol/L (21-32); Chloride 104 mmol/L (98-107); GFR African American 106 mL/min; GFR Non-African American 87 mL/min; Glucose 242 mg/dL (74-106); Potassium 3.7 mmol/L (3.5-5.1); Sodium 139 mmol/L (136-145)
[2018-06-01 02:38] LABS: Alkaline Phosphatase 92 U/L (45-117); Bilirubin, Total 0.2 mg/dL (0.2-1.0); Total Protein 6.8 g/dL (6.4-8.2)
[2018-06-01 02:42] LABS: Mean Corpuscular Hemoglobin 26.5 pg (28.0-32.0)
[2018-06-01] MEDS ORDERED: CIPROFLOXACIN 400MG/200ML 200 ML IV ONE (03:15)
[2018-06-01 05:52] LABS: Urine Bacteria MANY /hpf (None Seen); Urine Blood 1+ /uL (Negative); Urine Mucus FEW (None Seen); Urine Specific Gravity 1.013 (1.001-1.035); Urine WBC 193 /hpf (0 - 5)
[2018-06-01 06:02] VITALS: BP 107/80
== END 2018-06-01 06:48 | disposition home or self-care (01) ==
LOC: EDBD 00:50 → ER 00:54
DX: N39.0 Urinary tract infection, site not specified (principal); E11.22 Type 2 diabetes mellitus with diabetic chronic kidney disease; I13.0 Hypertensive heart and chronic kidney disease with heart failure and stage 1 through stage 4 chronic kidney disease, or unspecified chronic kidney disease; N18.9 Chronic kidney disease, unspecified; I50.9 Heart failure, unspecified; I25.10 Atherosclerotic heart disease of native coronary artery without angina pectoris; J44.9 Chronic obstructive pulmonary disease, unspecified; E78.5 Hyperlipidemia, unspecified; I25.2 Old myocardial infarction; Z79.82 Long term (current) use of aspirin; Z79.899 Other long term (current) drug therapy; Z79.84 Long term (current) use of oral hypoglycemic drugs; Z86.73 Personal history of transient ischemic attack (TIA), and cerebral infarction without residual deficits; Z98.61 Coronary angioplasty status; R51 Headache
CPT/HCPCS: 36415; 70450; 71045; 80053; 81001; 83880; 84484; 85025; 96365; 99285; J0744

== ENCOUNTER → 2019-06-11 | Emergency (ER) | payer MEDICARE, OTHER ==
[~2019-06-11] VITALS: Ht 170.2 cm; Wt 99.8 kg
[~2019-06-11] MED LIST changes: -AMLO5TAB13 PO; +AMLO5TAB15 PO; +FUROSEMIDE 40 MG/4 ML VIAL IV ONE; -LORA-654 PO; +LORA0.5T12 PO; +MORPHINE SULF INJ 2 MG/ML SYRINGE 1ML IV ONE; +MORPHINE SULF INJ 2 MG/ML SYRINGE 1ML IV PRN; +MORPHINE SULFATE 10 MG/ML INJ 1ML SDV IM ONE; +MORPHINE SULFATE 4 MG/ML SYR/VIAL IV ONE; +NITROGLYCERIN 0.4 MG SL TAB SL PRN; +ONDA-144 PO; -ONDA4TAB5 PO; +ONDANSETRON HCL 4 MG/2 ML VIAL IV ONE; +PROG1CAP2 PO; -PROG200C6 PO; +SODIUM CHLORIDE 0.9% 1,000 ML IV ONE; +cefTRIAXone 1GM/50ML D5W 50 ML IV ONE
[2019-06-11 01:09] LABS: Basophils # (auto) 0 uL; Basophils % (auto) 0.5 % (0.0-2.0); Eosinophils # (auto) 0.1 uL; Eosinophils % (auto) 1.2 % (0.0-7.0); Hematocrit 38.6 % (36.0-46.0); Hemoglobin 12.6 g/dL (12.2-16.2); Lymphocytes # (auto) 2.7 uL; Lymphocytes % (auto) 33.5 % (10.0-50.0); Mean Corpuscular Hemoglobin 27.7 pg (28.0-32.0); Mean Corpuscular Hgb Conc. 32.7 g/dL (32.0-36.0); Mean Corpuscular Volume 84.5 fL (80.0-100.0); Monocytes # (auto) 0.6 uL; Monocytes % (auto) 6.9 % (0.0-12.0); Neutrophils # (auto) 4.7 uL; Neutrophils % (auto) 57.9 % (37.0-80.0); Nucleated Red Blood Cells % 0.2 %; Platelet Count (auto) 236 10^3/uL (140-450); Red Blood Cells 4.57 10^6/uL (4.0-5.20); Red Cell Distribution Width 14.6 % (11.8-14.3); White Blood Cell 8.1 10^3/uL (4.4-10.8)
[2019-06-11 01:20] LABS: Alanine Aminotransferase 19 U/L (13-56); Albumin 3.1 g/dL (3.4-5.0); Anion Gap 6 (5-15); Aspartate Aminotransferase 9 U/L (15-37); BUN/Creatinine Ratio 15.9; Blood Urea Nitrogen 13 mg/dL (7-18); Calcium 8.7 mg/dL (8.5-10.1); Carbon Dioxide 28 mmol/L (21-32); Chloride 106 mmol/L (98-107); GFR African American 92 mL/min; GFR Non-African American 76 mL/min; Glucose 310 mg/dL (74-106); Magnesium 1.9 mg/dL (1.6-2.6); Potassium 3.6 mmol/L (3.5-5.1); Sodium 140 mmol/L (136-145)
[2019-06-11 01:29] LABS: Alkaline Phosphatase 99 U/L (45-117); Bilirubin, Total 0.2 mg/dL (0.2-1.0); Total Protein 6.9 g/dL (6.4-8.2)
[2019-06-11 03:20] LABS: Urine Bacteria MANY /hpf (None Seen); Urine Blood 2+ /uL (Negative); Urine Budding Yeast MODERATE /hpf (None Seen); Urine Mucus FEW (None Seen); Urine Specific Gravity 1.018 (1.001-1.035); Urine WBC 957 /hpf (0 - 5); Urine WBC Clumps PRESENT /hpf (None Seen)
[2019-06-11 12:01] VITALS: BP 129/57
--- NOTE | 2019-06-11 12:23 | NUR ---
I received a call from [facility] in ER asking about transportation benefits for this member. I called [facility] and spoke with Statistical Machine Mechanic Lisa, she said they do not provide transportation unless patient is being transferred to another type of facility. I called and spoke with Statistical Machine Mechanic Tita Han, she said it is a shared risk member and [facility] would be responsible for the patient. I relayed this information to [facility] in ER and asked her to call me if she needs me to provide her with non-emergent transportation information to give to the patient.
== END | disposition home or self-care (01) ==
LOC: EDUNIT# 06-10 23:54 → EDBD 00:06 → ER 00:07 → TELE 00:08 → UNDOADMIN 00:08 → ER 11:44
DX: A41.9 Sepsis, unspecified organism (principal); N39.0 Urinary tract infection, site not specified; E11.22 Type 2 diabetes mellitus with diabetic chronic kidney disease; I13.0 Hypertensive heart and chronic kidney disease with heart failure and stage 1 through stage 4 chronic kidney disease, or unspecified chronic kidney disease; N18.9 Chronic kidney disease, unspecified; I50.89 Other heart failure; J44.9 Chronic obstructive pulmonary disease, unspecified; K21.9 Gastro-esophageal reflux disease without esophagitis; E78.5 Hyperlipidemia, unspecified; I25.2 Old myocardial infarction; Z86.73 Personal history of transient ischemic attack (TIA), and cerebral infarction without residual deficits; Z98.61 Coronary angioplasty status; Z79.899 Other long term (current) drug therapy
CPT/HCPCS: 36415; 51702; 71045; 80053; 81001; 83735; 83880; 84484; 85025; 87086; 93005; 96365; 96366; 96375; 96376; 99284; J0696; J1940; J2270; J2405

== ENCOUNTER → 2020-03-14 | Emergency (ER) | payer OTHER, MEDICAID ==
[~2020-03-14] VITALS: Ht 172.7 cm; Wt 113.4 kg
[~2020-03-14] MED LIST changes: -FAM20T PO; +FAMO20TA10 PO; +FLUCONAZOLE 100 MG TAB PO ONE; -FUROSEMIDE 40 MG/4 ML VIAL IV ONE; -LORA0.5T12 PO; +LORA0.5T20 PO; -MORPHINE SULF INJ 2 MG/ML SYRINGE 1ML IV PRN; -MORPHINE SULFATE 10 MG/ML INJ 1ML SDV IM ONE; -MORPHINE SULFATE 4 MG/ML SYR/VIAL IV ONE; -NITROGLYCERIN 0.4 MG SL TAB SL PRN; -ONDANSETRON HCL 4 MG/2 ML VIAL IV ONE; -SODIUM CHLORIDE 0.9% 1,000 ML IV ONE; +SODIUM CHLORIDE 0.9% 500 ML IVB ONE
[2020-03-14 15:29] LABS: Basophils # (auto) 0 10 ^3/uL (0-0.2); Basophils % (auto) 0.5 % (0.0-2.0); Eosinophils # (auto) 0.1 10 ^3/uL (0-0.8); Eosinophils % (auto) 0.7 % (0.0-7.0); Hematocrit 40.3 % (36.0-46.0); Hemoglobin 12.9 g/dL (12.2-16.2); Lymphocytes # (auto) 2.2 10 ^3/uL (0.4-5.4); Lymphocytes % (auto) 30.7 % (10.0-50.0); Mean Corpuscular Hemoglobin 27.9 pg (28.0-32.0); Mean Corpuscular Volume 87.1 fL (80.0-100.0); Monocytes # (auto) 0.6 10 ^3/uL (0-1.3); Monocytes % (auto) 8.2 % (0.0-12.0); Neutrophils # (auto) 4.2 10 ^3/uL (1.6-8.6); Neutrophils % (auto) 59.9 % (37.0-80.0); Nucleated Red Blood Cells % 0.1 %; Platelet Count (auto) 276 10^3/uL (140-450); Red Blood Cells 4.62 10^6/uL (4.0-5.20); Red Cell Distribution Width 14.6 % (11.8-14.3)
[2020-03-14 15:44] LABS: Albumin 2.9 g/dL (3.4-5.0); BUN/Creatinine Ratio 11.7; Calcium 9.2 mg/dL (8.5-10.1); Potassium 3.8 mmol/L (3.5-5.1)
[2020-03-14 15:47] LABS: Bilirubin, Total 0.3 mg/dL (0.2-1.0); Total Protein 7.4 g/dL (6.4-8.2)
[2020-03-15 05:48] LABS: Urine Bacteria MANY /hpf (None Seen); Urine Blood 2+ /uL (Negative); Urine Mucus FEW (None Seen); Urine Specific Gravity 1.016 (1.001-1.035); Urine WBC 889 /hpf (0 - 5); Urine WBC Clumps PRESENT /hpf (None Seen)
[2020-03-15 09:00] VITALS: BP 175/80
== END | disposition home or self-care (01) ==
LOC: ER 14:12 → EDBD 14:12 → EDUNIT# 14:12
DX: N30.90 Cystitis, unspecified without hematuria (principal); R53.1 Weakness; R30.0 Dysuria; I11.0 Hypertensive heart disease with heart failure; I50.9 Heart failure, unspecified; J44.9 Chronic obstructive pulmonary disease, unspecified; E11.9 Type 2 diabetes mellitus without complications
CPT/HCPCS: 36415; 74176; 80053; 81001; 85025; 87086; 96365; 96375; 96376; 99285; J7040

== ENCOUNTER 2021-04-11 11:12 | Observation (INO) | payer OTHER, MEDICAID ==
[~2021-04-11] VITALS: Ht 157.5 cm; Wt 117.5 kg
[~2021-04-11 11:12] MED LIST changes: +AMLO-489 PO; -AMLO5TAB15 PO; -BISA-4 PO; +BISA-65 PO; -FLUCONAZOLE 100 MG TAB PO ONE; -MORPHINE SULF INJ 2 MG/ML SYRINGE 1ML IV ONE; -SODIUM CHLORIDE 0.9% 500 ML IVB ONE; -cefTRIAXone 1GM/50ML D5W 50 ML IV ONE
[2021-04-11] MEDS ORDERED: cloNIDine HCL 0.1 MG TAB ONE (11:16)
[2021-04-11] MEDS ORDERED: cloNIDine HCL 0.1 MG TAB PO ONE (11:30)
[2021-04-11 13:45] LABS: Basophils # (auto) 0.1 10 ^3/uL (0-0.2); Basophils % (auto) 0.7 % (0.0-2.0); Eosinophils # (auto) 0.1 10 ^3/uL (0-0.8); Hemoglobin 13.5 g/dL (12.2-16.2); Lymphocytes # (auto) 2.4 10 ^3/uL (0.4-5.4); Lymphocytes % (auto) 30.8 % (10.0-50.0); Mean Corpuscular Hemoglobin 28.4 pg (28.0-32.0); Mean Corpuscular Hgb Conc. 32.9 g/dL (32.0-36.0); Mean Corpuscular Volume 86.5 fL (80.0-100.0); Monocytes # (auto) 0.5 10 ^3/uL (0-1.3); Monocytes % (auto) 6.4 % (0.0-12.0); Neutrophils # (auto) 4.8 10 ^3/uL (1.6-8.6); Neutrophils % (auto) 61.1 % (37.0-80.0); Nucleated Red Blood Cells % 0.1 %; Red Blood Cells 4.74 10^6/uL (4.0-5.20); Red Cell Distribution Width 14.2 % (11.8-14.3); White Blood Cell 7.9 10^3/uL (4.4-10.8)
[2021-04-11 14:07] LABS: Albumin 2.7 g/dL (3.4-5.0); Anion Gap 6 (5-15); Blood Urea Nitrogen 6 mg/dL (7-18); Calcium 8.8 mg/dL (8.5-10.1); Carbon Dioxide 27 mmol/L (21-32); Chloride 104 mmol/L (98-107); Glucose 268 mg/dL (74-106); Lipase 244 U/L (73-393); Magnesium 1.8 mg/dL (1.6-2.6); Sodium 137 mmol/L (136-145)
[2021-04-11 14:13] LABS: Alanine Aminotransferase 41 U/L (13-56); Alkaline Phosphatase 104 U/L (45-117); Aspartate Aminotransferase 36 U/L (15-37); BUN/Creatinine Ratio 9.4; Bilirubin, Total 0.4 mg/dL (0.2-1.0); GFR African American 122 mL/min; GFR Non-African American 101 mL/min; Total Protein 7.3 g/dL (6.4-8.2)
[2021-04-12] MEDS ORDERED: hydrALAZINE HCL 20 MG/ML VL IV PRN (01:15)
[2021-04-12] MEDS ORDERED: DEXTROSE (50%) 50ML SYRG IV PRN (02:00)
[2021-04-12] MEDS ORDERED: MORPHINE SULFATE INJECTION 2 MG/ML SYRG IV PRN (02:00)
[2021-04-12] MEDS ORDERED: NITROGLYCERIN 0.4 MG SL TAB SL PRN (02:00)
[2021-04-12] MEDS ORDERED: ONDANSETRON HCL 4 MG/2 ML VIAL IV PRN (02:00)
[2021-04-12] MEDS ORDERED: SODIUM CHLORIDE 0.9% 1,000 ML IV ONE (02:00)
[2021-04-12] MEDS: MORPHINE SULFATE 4 MG/ML SYR/VIAL IV PRN ×3 (02:45→11:31)
[2021-04-12 03:14] LABS: Urine Bacteria NONE SEEN /hpf (None Seen); Urine Blood 3+ /uL (Negative); Urine WBC 1257 /hpf (0 - 5); Urine WBC Clumps PRESENT /hpf (None Seen)
[2021-04-12 03:17] LABS: Urine Specific Gravity 1.028 (1.001-1.035)
[2021-04-12 03:52] VITALS: BP 144/73
[2021-04-12 05:00] VITALS: BP 144/73
[2021-04-12 05:27] LABS: Basophils # (auto) 0 10 ^3/uL (0-0.2); Basophils % (auto) 0.6 % (0.0-2.0); Eosinophils # (auto) 0.1 10 ^3/uL (0-0.8); Eosinophils % (auto) 1.3 % (0.0-7.0); Hematocrit 40.5 % (36.0-46.0); Hemoglobin 13.2 g/dL (12.2-16.2); Lymphocytes # (auto) 2.5 10 ^3/uL (0.4-5.4); Mean Corpuscular Hemoglobin 28.3 pg (28.0-32.0); Mean Corpuscular Hgb Conc. 32.6 g/dL (32.0-36.0); Monocytes # (auto) 0.6 10 ^3/uL (0-1.3); Monocytes % (auto) 7.6 % (0.0-12.0); Neutrophils # (auto) 4.4 10 ^3/uL (1.6-8.6); Neutrophils % (auto) 57.5 % (37.0-80.0); Nucleated Red Blood Cells % 0.1 %; Red Blood Cells 4.66 10^6/uL (4.0-5.20); Red Cell Distribution Width 14.5 % (11.8-14.3); White Blood Cell 7.7 10^3/uL (4.4-10.8)
[2021-04-12 05:46] LABS: Potassium 4.2 mmol/L (3.5-5.1)
[2021-04-12 05:53] LABS: Albumin 2.7 g/dL (3.4-5.0); BUN/Creatinine Ratio 12.7; Bilirubin, Total 0.4 mg/dL (0.2-1.0); Total Protein 7.4 g/dL (6.4-8.2)
[2021-04-12] MEDS: ACCU-CHEK COMFORT CURVE STRIP VI SCH ×2 (06:22→11:40)
[2021-04-12] MEDS: InsuLIN REG 1unit/0.01ml Soln (100units/ml) SC SCH ×2 (06:23→11:41)
[2021-04-12 08:11] VITALS: BP 140/73
[2021-04-12] MEDS ORDERED: cefTRIAXone 1GM/50ML D5W 50 ML IV SCH (09:00)
[2021-04-12] MEDS ORDERED: TRIAMTERENE/HCTZ 37.5/25 MG CAP/TAB PO SCH (10:00)
[2021-04-12] MEDS ORDERED: PANTOPRAZOLE 40 MG TAB PO SCH (10:00)
[2021-04-12] MEDS ORDERED: LACTULOSE 20Gm/30ML SOLN PO SCH (10:00)
[2021-04-12] MEDS ORDERED: amLODIPine BESYLATE 5 MG TAB PO SCH (10:00)
[2021-04-12] MEDS ORDERED: HYDROCHLOROTHIAZ PO SCH (10:00)
[2021-04-12] MEDS ORDERED: BISACODYL 5 MG EC TAB PO SCH (10:00)
[2021-04-12] MEDS ORDERED: TRIAMTERENE PO SCH (10:00)
[2021-04-12 13:00] VITALS: BP 105/73
[2021-04-12 16:32] VITALS: BP 120/77
[2021-04-12] MEDS ORDERED: ATORVASTATIN 20 MG TAB PO SCH (22:00)
== END 2021-04-12 16:30 | disposition home health service (06) ==
LOC: ER 11:12 → OVERFLOW 04-12 01:50 → INTOOBSV 04-12 01:50 → CENTRAL 04-12 04:01
PROVIDERS: ADMIT Hospitalist; ATTEND Hospitalist
DX: N39.0 Urinary tract infection, site not specified (principal); Z20.822 Contact with and (suspected) exposure to COVID-19; I11.0 Hypertensive heart disease with heart failure; I50.9 Heart failure, unspecified; E11.9 Type 2 diabetes mellitus without complications; J44.9 Chronic obstructive pulmonary disease, unspecified; R16.0 Hepatomegaly, not elsewhere classified; E66.01 Morbid (severe) obesity due to excess calories; Z79.899 Other long term (current) drug therapy; Z98.890 Other specified postprocedural states; Z68.42 Body mass index [BMI] 45.0-49.9, adult; Z79.4 Long term (current) use of insulin; Z79.82 Long term (current) use of aspirin; Z98.891 History of uterine scar from previous surgery
CPT/HCPCS: 36415; 74176; 74177; 80053; 81001; 82962; 83605; 83690; 83735; 84484; 85025; 87040; 87086; 87088; 87426; 93005; 96361; 96365; 96366; 96372; 96375; 96376; 99285; G0378; J0360; J0696; J1815; J2270; J2405; J7030; 96374

== ENCOUNTER 2022-11-27 19:26 | Inpatient (IN) | payer OTHER, MEDICAID ==
[~2022-11-27] VITALS: Ht 157.5 cm; Wt 116.5 kg
[~2022-11-27 19:26] MED LIST changes: +CARV25TA55 PO; -FLUC200T50 PO; +LOSA50TA30 PO
[2022-11-27 21:11] LABS: Basophils # (auto) 0 10 ^3/uL (0-0.2); Basophils % (auto) 0.1 % (0.0-2.0); Eosinophils # (auto) 0 10 ^3/uL (0-0.8); Hemoglobin 7.7 g/dL (12.2-16.2); Neutrophils # (auto) 5.1 10 ^3/uL (1.6-8.6); Nucleated Red Blood Cells % 0.1 %
[2022-11-27 21:12] LABS: Hematocrit 26.1 % (36.0-46.0); Lymphocytes # (auto) 1.3 10 ^3/uL (0.4-5.4); Lymphocytes % (auto) 18.9 % (10.0-50.0); Mean Corpuscular Hemoglobin 23.2 pg (28.0-32.0); Mean Corpuscular Hgb Conc. 29.5 g/dL (32.0-36.0); Mean Corpuscular Volume 78.9 fL (80.0-100.0); Monocytes # (auto) 0.3 10 ^3/uL (0-1.3); Red Blood Cells 3.31 10^6/uL (4.0-5.20); Red Cell Distribution Width 18.7 % (11.8-14.3); White Blood Cell 6.8 10^3/uL (4.4-10.8)
[2022-11-27 21:22] LABS: Albumin 1.6 g/dL (3.4-5.0); BUN/Creatinine Ratio 9.8 (10.0-20.0); Calcium 8.8 mg/dL (8.5-10.1); Potassium 3.8 mmol/L (3.5-5.1)
[2022-11-27 21:25] LABS: Bilirubin, Total 0.4 mg/dL (0.2-1.0); Total Protein 8.1 g/dL (6.4-8.2)
[2022-11-27 23:57] LABS: Urine Bacteria NONE SEEN /hpf (None Seen); Urine Blood 1+ /uL (Negative); Urine WBC 15534 /hpf (0 - 5); Urine WBC Clumps PRESENT /hpf (None Seen)
[2022-11-28] MEDS ORDERED: cefTRIAXone 1GM/50ML D5W 50 ML IV ONE
[2022-11-28] MEDS ORDERED: HYDROmorphone HCL 2 MG/ML VL/or syr IV ONE ×2 (00:15→03:45)
[2022-11-28 01:13] LABS: Lactic Acid w/Reflex 2.6 mmol/L (0.4-2.0)
[2022-11-28] MEDS ORDERED: ONDANSETRON HCL 4 MG/2 ML VIAL IV ONE (03:45)
[2022-11-28] MEDS ORDERED: HYDROcodone-ACET 5/325MG TAB PO PRN (06:45)
[2022-11-28] MEDS ORDERED: ACETAMINOPHEN 325 MG TAB PO PRN (06:45)
[2022-11-28] MEDS ORDERED: DEXTROSE (50%) 50ML SYRG IV PRN (06:45)
[2022-11-28] MEDS ORDERED: SODIUM CHLORIDE 0.9% 500 ML IV ONE (06:45)
[2022-11-28] MEDS: ACCU-CHEK COMFORT CURVE STRIP VI SCH ×4 (07:01→22:00)
[2022-11-28] MEDS: InsuLIN REG 1unit/0.01ml Soln (100units/ml) SC SCH ×5 (07:09→22:00)
[2022-11-28] MEDS: PANTOPRAZOLE 40 MG TAB PO SCH (09:19)
[2022-11-28] MEDS: SODIUM CHLORIDE 0.9% 1,000 ML IV SCH ×2 (09:20→21:05)
[2022-11-28] MEDS: cefTRIAXone 1GM/50ML D5W 50 ML IV SCH (09:20)
[2022-11-28] MEDS: ENOXAPARIN SOD 40 MG/0.4 ML SYRINGE SC SCH (09:20)
[2022-11-28 11:42] LABS: Basophils # (auto) 0 10 ^3/uL (0-0.2); Basophils % (auto) 0.1 % (0.0-2.0); Eosinophils # (auto) 0 10 ^3/uL (0-0.8); Lymphocytes % (auto) 6.9 % (10.0-50.0); Monocytes # (auto) 0.9 10 ^3/uL (0-1.3); Monocytes % (auto) 3.6 % (0.0-12.0); Neutrophils % (auto) 89.4 % (37.0-80.0)
[2022-11-28 11:43] LABS: Hematocrit 23.8 % (36.0-46.0); Lymphocytes # (auto) 1.7 10 ^3/uL (0.4-5.4); Mean Corpuscular Hemoglobin 22.9 pg (28.0-32.0); Mean Corpuscular Hgb Conc. 29.5 g/dL (32.0-36.0); Mean Corpuscular Volume 77.6 fL (80.0-100.0); Neutrophils # (auto) 22.2 10 ^3/uL (1.6-8.6); Nucleated Red Blood Cells % 0.3 %; Red Blood Cells 3.06 10^6/uL (4.0-5.20); Red Cell Distribution Width 19.1 % (11.8-14.3); White Blood Cell 24.9 10^3/uL (4.4-10.8)
[2022-11-28 12:04] LABS: % Iron Saturation 5.1 % (15-50); Calcium 8.4 mg/dL (8.5-10.1); Potassium 3.7 mmol/L (3.5-5.1)
[2022-11-28 12:06] LABS: BUN/Creatinine Ratio 8.9 (10.0-20.0)
[2022-11-28 12:07] LABS: Lactic Acid w/Reflex 3.3 mmol/L (0.4-2.0)
[2022-11-28] MEDS ORDERED: SODIUM CHLORIDE 0.9% 250 ML IV ONE (13:00)
[2022-11-28 16:49] VITALS: BP 96/50
[2022-11-28 17:05] VITALS: BP 99/53
[2022-11-28 17:15] LABS: Folate (Folic Acid) 2.21 ng/mL (5.38-24)
[2022-11-28 19:00] VITALS: BP 92/47
[2022-11-28 21:19] VITALS: BP 104/51
[2022-11-28 21:54] LABS: Hematocrit 28.1 % (36.0-46.0); Hemoglobin 8.5 g/dL (12.2-16.2)
[2022-11-28] MEDS: OXYCODONE W/ ACETAMINOPHEN 5/325MG TABLET PO PRN (23:46)
[2022-11-29] VITALS (7 sets, daily range): BP systolic 106–137; BP diastolic 59–78
[2022-11-29] MEDS ORDERED: SODIUM FERR GLUC 62.5MG/5ML 125 MG in SODIUM CHL 0.9% 100 ML IV ONE ×2 (00:15→09:00)
[2022-11-29] MEDS ORDERED: FOLIC ACID 1 MG in D5W 5% 50 ML INJ ONE ×2 (00:30→09:00)
[2022-11-29] MEDS: OXYCODONE W/ ACETAMINOPHEN 5/325MG TABLET PO PRN ×4 (04:53→22:42)
[2022-11-29 04:57] LABS: Mean Corpuscular Volume 79.3 fL (80.0-100.0); White Blood Cell 27.9 10^3/uL (4.4-10.8)
[2022-11-29 04:59] LABS: Hematocrit 25.7 % (36.0-46.0); Mean Corpuscular Hemoglobin 24.6 pg (28.0-32.0); Red Blood Cells 3.24 10^6/uL (4.0-5.20)
[2022-11-29 05:15] LABS: BUN/Creatinine Ratio 14.7 (10.0-20.0); Basophils % (manual) 0 (0.0-2.0); Blast Cells 0; Calcium 8.7 mg/dL (8.5-10.1); Eosinophils % (manual) 0 (0-7); Metamyelocytes % 0; Monocytes % (manual) 0 (0-12); Myelocytes % 0; Potassium 3.6 mmol/L (3.5-5.1); Promyelocytes % 0; Reactive Lymphocytes 0
[2022-11-29] MEDS: SODIUM CHLORIDE 0.9% 1,000 ML IV SCH ×2 (06:17→18:46)
[2022-11-29] MEDS: InsuLIN REG 1unit/0.01ml Soln (100units/ml) SC SCH ×4 (06:24→22:00)
[2022-11-29] MEDS: ACCU-CHEK COMFORT CURVE STRIP VI SCH ×4 (06:25→22:00)
[2022-11-29 07:30] LABS: Band Neutrophils % (manual) 8; Lymphocytes % (manual) 16 (10.0-50.0)
[2022-11-29] MEDS: FOLIC ACID 1 MG TAB PO SCH (09:43)
[2022-11-29] MEDS: PANTOPRAZOLE 40 MG TAB PO SCH (09:43)
[2022-11-29] MEDS: FERROUS SULFATE 325mg EC TAB PO SCH ×3 (09:43→18:45)
[2022-11-29] MEDS: DOCUSATE SOD 100 MG CAP PO SCH ×2 (09:43→22:43)
[2022-11-29] MEDS: cefTRIAXone 1GM/50ML D5W 50 ML IV SCH (09:44)
[2022-11-29] MEDS: ENOXAPARIN SOD 40 MG/0.4 ML SYRINGE SC SCH (09:44)
[2022-11-29] MEDS ORDERED: VANCOMYCIN 1GM/250ML 250 ML IV ONE (13:15)
[2022-11-29] MEDS ORDERED: VANCOMYCIN PER PHARMACY 0 MG IV SCH (13:15)
[2022-11-29] MEDS: POLYETHYLENE GLYCOL 17 GM PWDR PO SCH (22:43)
[2022-11-30 05:00] VITALS: BP 145/73
[2022-11-30 05:19] LABS: Hemoglobin 8.4 g/dL (12.2-16.2); Mean Corpuscular Hemoglobin 25.2 pg (28.0-32.0); Mean Corpuscular Hgb Conc. 32.4 g/dL (32.0-36.0); Red Blood Cells 3.33 10^6/uL (4.0-5.20); Red Cell Distribution Width 19.4 % (11.8-14.3)
[2022-11-30 05:28] LABS: Calcium 8.5 mg/dL (8.5-10.1)
[2022-11-30 05:30] LABS: BUN/Creatinine Ratio 19.7 (10.0-20.0)
[2022-11-30 05:38] LABS: White Blood Cell 38.7 10^3/uL (4.4-10.8)
[2022-11-30 05:39] LABS: Basophils % (manual) 0 (0.0-2.0); Blast Cells 0; Metamyelocytes % 0; Myelocytes % 0; Promyelocytes % 0; Reactive Lymphocytes 0
[2022-11-30] MEDS: OXYCODONE W/ ACETAMINOPHEN 5/325MG TABLET PO PRN ×4 (05:45→21:18)
[2022-11-30] MEDS: VANCOMYCIN 1GM/250ML 250 ML IV SCH ×2 (05:46→06:03)
[2022-11-30] MEDS: SODIUM CHLORIDE 0.9% 1,000 ML IV SCH ×2 (05:49→17:35)
[2022-11-30] MEDS: ACCU-CHEK COMFORT CURVE STRIP VI SCH ×4 (05:54→22:00)
[2022-11-30] MEDS: InsuLIN REG 1unit/0.01ml Soln (100units/ml) SC SCH ×4 (05:54→22:00)
[2022-11-30 08:10] VITALS: BP 132/83
[2022-11-30 08:48] VITALS: BP 132/83
[2022-11-30] MEDS: FERROUS SULFATE 325mg EC TAB PO SCH ×3 (08:51→18:49)
[2022-11-30] MEDS: cefTRIAXone 1GM/50ML D5W 50 ML IV SCH (08:51)
[2022-11-30 09:05] LABS: Band Neutrophils % (manual) 7; Eosinophils % (manual) 3 (0-7); Lymphocytes % (manual) 10 (10.0-50.0); Monocytes % (manual) 3 (0-12)
[2022-11-30] MEDS: DOCUSATE SOD 100 MG CAP PO SCH ×3 (09:46→22:00)
[2022-11-30] MEDS: FOLIC ACID 1 MG TAB PO SCH (09:46)
[2022-11-30] MEDS: PANTOPRAZOLE 40 MG TAB PO SCH (09:46)
[2022-11-30] MEDS: POLYETHYLENE GLYCOL 17 GM PWDR PO SCH ×2 (09:46→22:00)
[2022-11-30] MEDS: ENOXAPARIN SOD 40 MG/0.4 ML SYRINGE SC SCH (11:11)
[2022-11-30] MEDS ORDERED: IOHEXOL 300 MG/ML 100ML BOTTLE IJ ONE ×2 (13:11→14:06)
[2022-11-30 13:18] VITALS: BP 126/73
[2022-11-30] MEDS: ERTAPENEM SOD INJ 1 GM in SODIUM CHL 0.9% 50 ML IV SCH (13:20)
[2022-11-30 17:10] VITALS: BP 134/74
[2022-11-30 22:00] VITALS: BP 120/68
[2022-12-01] VITALS (7 sets, daily range): BP systolic 123–148; BP diastolic 63–89
[2022-12-01] MEDS: OXYCODONE W/ ACETAMINOPHEN 5/325MG TABLET PO PRN ×3 (02:30→15:36)
[2022-12-01] MEDS: SODIUM CHLORIDE 0.9% 1,000 ML IV SCH ×2 (05:21→17:09)
[2022-12-01] MEDS: InsuLIN REG 1unit/0.01ml Soln (100units/ml) SC SCH ×4 (05:38→21:35)
[2022-12-01] MEDS: DOCUSATE SOD 100 MG CAP PO SCH ×3 (05:39→22:00)
[2022-12-01 06:28] LABS: Hemoglobin 7.9 g/dL (12.2-16.2); Mean Corpuscular Volume 78.1 fL (80.0-100.0)
[2022-12-01 06:32] LABS: Hematocrit 25.6 % (36.0-46.0); Mean Corpuscular Hgb Conc. 30.7 g/dL (32.0-36.0); Red Blood Cells 3.28 10^6/uL (4.0-5.20); Red Cell Distribution Width 19.7 % (11.8-14.3); White Blood Cell 27.2 10^3/uL (4.4-10.8)
[2022-12-01] MEDS: ACCU-CHEK COMFORT CURVE STRIP VI SCH ×4 (06:33→22:12)
[2022-12-01 06:37] LABS: Basophils % (manual) 0 (0.0-2.0); Blast Cells 0; Eosinophils % (manual) 0 (0-7); Metamyelocytes % 0; Myelocytes % 0; Promyelocytes % 0; Reactive Lymphocytes 0
[2022-12-01 06:42] LABS: BUN/Creatinine Ratio 25.5 (10.0-20.0); Calcium 8.8 mg/dL (8.5-10.1); Potassium 3.6 mmol/L (3.5-5.1)
[2022-12-01 08:24] LABS: Band Neutrophils % (manual) 4; Lymphocytes % (manual) 9 (10.0-50.0); Monocytes % (manual) 4 (0-12)
[2022-12-01] MEDS: FERROUS SULFATE 325mg EC TAB PO SCH ×3 (08:38→17:50)
[2022-12-01] MEDS: FOLIC ACID 1 MG TAB PO SCH (09:46)
[2022-12-01] MEDS: PANTOPRAZOLE 40 MG TAB PO SCH (09:46)
[2022-12-01] MEDS: POLYETHYLENE GLYCOL 17 GM PWDR PO SCH ×2 (09:46→22:00)
[2022-12-01] MEDS: ERTAPENEM SOD INJ 1 GM in SODIUM CHL 0.9% 50 ML IV SCH (09:46)
[2022-12-01] MEDS: ENOXAPARIN SOD 40 MG/0.4 ML SYRINGE SC SCH (09:47)
[2022-12-01] MEDS: ONDANSETRON HCL 4 MG/2 ML VIAL IV PRN (10:26)
[2022-12-01] MEDS: POTASSIUM CHL 20MEQ/100ML 100 ML IV SCH ×2 (12:04→13:39)
[2022-12-01] MEDS ORDERED: GOLYTELY 4L KIT PO ONE (13:45)
[2022-12-01] MEDS: VANCOMYCIN 1GM/250ML 250 ML IV SCH (16:34)
[2022-12-01] MEDS: MORPHINE SULFATE INJ 2 MG/ml SYRG IV PRN ×2 (17:52→22:11)
[2022-12-01] MEDS: SENNA 8.6 MG TAB PO SCH (22:00)
[2022-12-02] MEDS: VANCOMYCIN 1GM/250ML 250 ML IV SCH ×4 (00:10→23:26)
[2022-12-02] MEDS: MORPHINE SULFATE INJ 2 MG/ml SYRG IV PRN ×5 (02:00→23:26)
[2022-12-02] MEDS: SODIUM CHLORIDE 0.9% 1,000 ML IV SCH ×2 (04:53→12:08)
[2022-12-02 05:00] VITALS: BP 128/92
[2022-12-02] MEDS: DOCUSATE SOD 100 MG CAP PO SCH ×3 (06:00→22:00)
[2022-12-02] MEDS: InsuLIN REG 1unit/0.01ml Soln (100units/ml) SC SCH ×4 (06:51→22:00)
[2022-12-02] MEDS: ACCU-CHEK COMFORT CURVE STRIP VI SCH ×4 (06:51→22:09)
[2022-12-02] MEDS: FERROUS SULFATE 325mg EC TAB PO SCH ×3 (08:47→17:19)
[2022-12-02 09:00] VITALS: BP 129/91
[2022-12-02] MEDS: ERTAPENEM SOD INJ 1 GM in SODIUM CHL 0.9% 50 ML IV SCH (09:06)
[2022-12-02] MEDS: ENOXAPARIN SOD 40 MG/0.4 ML SYRINGE SC SCH (09:07)
[2022-12-02 09:39] LABS: Hemoglobin 8.6 g/dL (12.2-16.2); Mean Corpuscular Hemoglobin 23.9 pg (28.0-32.0); Mean Corpuscular Hgb Conc. 30.7 g/dL (32.0-36.0); Mean Corpuscular Volume 78.1 fL (80.0-100.0); Red Blood Cells 3.58 10^6/uL (4.0-5.20); Red Cell Distribution Width 19.6 % (11.8-14.3); White Blood Cell 22.2 10^3/uL (4.4-10.8)
[2022-12-02 09:50] LABS: Basophils % (manual) 0 (0.0-2.0); Blast Cells 0; Metamyelocytes % 0; Myelocytes % 0; Promyelocytes % 0; Reactive Lymphocytes 0
[2022-12-02] MEDS: PANTOPRAZOLE 40 MG TAB PO SCH (10:00)
[2022-12-02] MEDS: FOLIC ACID 1 MG TAB PO SCH (10:00)
[2022-12-02] MEDS: POLYETHYLENE GLYCOL 17 GM PWDR PO SCH ×2 (10:00→22:00)
[2022-12-02 13:00] VITALS: BP 155/83
[2022-12-02 13:53] LABS: Band Neutrophils % (manual) 4; Eosinophils % (manual) 1 (0-7); Lymphocytes % (manual) 15 (10.0-50.0); Monocytes % (manual) 3 (0-12)
[2022-12-02 14:20] LABS: BUN/Creatinine Ratio 24.4 (10.0-20.0); Calcium 8.1 mg/dL (8.5-10.1); Potassium 4.9 mmol/L (3.5-5.1)
[2022-12-02 16:50] VITALS: BP 154/94
[2022-12-02 20:00] VITALS: BP 126/78
[2022-12-02 22:00] VITALS: BP 126/78
[2022-12-02] MEDS: SENNA 8.6 MG TAB PO SCH (22:00)
[2022-12-02 22:16] LABS: INR 1.13 (0.9-1.15)
[2022-12-03] VITALS (7 sets, daily range): BP systolic 119–145; BP diastolic 68–87
[2022-12-03] MEDS: SODIUM CHLORIDE 0.9% 1,000 ML IV SCH ×2 (03:28→17:23)
[2022-12-03] MEDS: DOCUSATE SOD 100 MG CAP PO SCH ×3 (05:51→20:45)
[2022-12-03] MEDS: ACCU-CHEK COMFORT CURVE STRIP VI SCH ×4 (06:25→20:51)
[2022-12-03] MEDS: InsuLIN REG 1unit/0.01ml Soln (100units/ml) SC SCH ×4 (06:25→20:51)
[2022-12-03 08:19] LABS: Hemoglobin 7.7 g/dL (12.2-16.2); Mean Corpuscular Hemoglobin 24.2 pg (28.0-32.0); Red Blood Cells 3.19 10^6/uL (4.0-5.20)
[2022-12-03 08:21] LABS: Hematocrit 25.6 % (36.0-46.0); Mean Corpuscular Hgb Conc. 30.2 g/dL (32.0-36.0); Mean Corpuscular Volume 80.2 fL (80.0-100.0); White Blood Cell 17.5 10^3/uL (4.4-10.8)
[2022-12-03 08:26] LABS: BUN/Creatinine Ratio 26.8 (10.0-20.0); Basophils % (manual) 0 (0.0-2.0); Blast Cells 0; Calcium 8.4 mg/dL (8.5-10.1); Eosinophils % (manual) 0 (0-7); Metamyelocytes % 0; Myelocytes % 0; Potassium 3.7 mmol/L (3.5-5.1); Promyelocytes % 0; Reactive Lymphocytes 0
[2022-12-03] MEDS: ENOXAPARIN SOD 40 MG/0.4 ML SYRINGE SC SCH (09:33)
[2022-12-03] MEDS: ERTAPENEM SOD INJ 1 GM in SODIUM CHL 0.9% 50 ML IV SCH (09:33)
[2022-12-03] MEDS: MORPHINE SULFATE INJ 2 MG/ml SYRG IV PRN ×3 (09:44→20:57)
[2022-12-03] MEDS: FERROUS SULFATE 325mg EC TAB PO SCH ×3 (09:51→18:00)
[2022-12-03] MEDS: FOLIC ACID 1 MG TAB PO SCH (09:51)
[2022-12-03] MEDS: PANTOPRAZOLE 40 MG TAB PO SCH (09:52)
[2022-12-03] MEDS: POLYETHYLENE GLYCOL 17 GM PWDR PO SCH ×2 (09:52→20:46)
[2022-12-03 12:38] LABS: Band Neutrophils % (manual) 9; Lymphocytes % (manual) 11 (10.0-50.0); Monocytes % (manual) 4 (0-12)
[2022-12-03 15:25] LABS: Hematocrit 26.3 % (36.0-46.0); Hemoglobin 7.9 g/dL (12.2-16.2); Mean Corpuscular Hgb Conc. 30.1 g/dL (32.0-36.0)
[2022-12-03 15:27] LABS: Mean Corpuscular Hemoglobin 23.8 pg (28.0-32.0); Red Blood Cells 3.33 10^6/uL (4.0-5.20); White Blood Cell 18.3 10^3/uL (4.4-10.8)
[2022-12-03 15:48] LABS: Red Cell Distribution Width 20.1 % (11.8-14.3)
[2022-12-03 15:51] LABS: Band Neutrophils % (manual) 0; Basophils % (manual) 0 (0.0-2.0); Blast Cells 0; Eosinophils % (manual) 0 (0-7); Metamyelocytes % 0; Myelocytes % 0; Promyelocytes % 0; Reactive Lymphocytes 0
[2022-12-03 16:32] LABS: Lymphocytes % (manual) 9 (10.0-50.0); Monocytes % (manual) 2 (0-12)
[2022-12-03] MEDS ORDERED: PPN PER PHARMACY 0 ML IV SCH (19:45)
[2022-12-03] MEDS ORDERED: AMINO ACID INFUSION IN D10W 1,000 ML IV NR (20:30)
[2022-12-03] MEDS: SENNA 8.6 MG TAB PO SCH (20:46)
[2022-12-03] MEDS: ONDANSETRON HCL 4 MG/2 ML VIAL IV PRN (22:48)
[2022-12-04] VITALS (7 sets, daily range): BP systolic 141–154; BP diastolic 70–102
[2022-12-04] MEDS ORDERED: DEXTROSE (50%) 50ML SYRG IV SCH
[2022-12-04] MEDS: MORPHINE SULFATE INJ 2 MG/ml SYRG IV PRN ×5 (02:48→22:38)
[2022-12-04] MEDS: DOCUSATE SOD 100 MG CAP PO SCH ×3 (05:18→21:05)
[2022-12-04] MEDS: ACCU-CHEK COMFORT CURVE STRIP VI SCH ×3 (05:19→18:14)
[2022-12-04] MEDS: InsuLIN REG 1unit/0.01ml Soln (100units/ml) SC SCH ×3 (05:20→18:22)
[2022-12-04 06:38] LABS: Potassium 3.5 mmol/L (3.5-5.1)
[2022-12-04 06:40] LABS: Mean Corpuscular Volume 78.8 fL (80.0-100.0); Red Cell Distribution Width 19.7 % (11.8-14.3)
[2022-12-04 06:43] LABS: Hematocrit 26.7 % (36.0-46.0); Hemoglobin 8.1 g/dL (12.2-16.2); Mean Corpuscular Hgb Conc. 30.4 g/dL (32.0-36.0); Red Blood Cells 3.39 10^6/uL (4.0-5.20); White Blood Cell 17.3 10^3/uL (4.4-10.8)
[2022-12-04 06:46] LABS: Albumin 1.3 g/dL (3.4-5.0); BUN/Creatinine Ratio 27.9 (10.0-20.0); Bilirubin, Total 0.5 mg/dL (0.2-1.0); Calcium 8.6 mg/dL (8.5-10.1); Phosphorus 2.7 mg/dL (2.5-4.90); Total Protein 6.2 g/dL (6.4-8.2)
[2022-12-04 06:52] LABS: Basophils % (manual) 0 (0.0-2.0); Blast Cells 0; Eosinophils % (manual) 0 (0-7); Metamyelocytes % 0; Promyelocytes % 0; Reactive Lymphocytes 0
[2022-12-04 07:37] LABS: Band Neutrophils % (manual) 2; Lymphocytes % (manual) 17 (10.0-50.0); Monocytes % (manual) 5 (0-12); Myelocytes % 1
[2022-12-04] MEDS: FERROUS SULFATE 325mg EC TAB PO SCH ×3 (08:00→18:00)
[2022-12-04] MEDS: VANCOMYCIN 500 MG in D5W 5% 100 ML IV SCH (08:12)
[2022-12-04] MEDS ORDERED: POTASSIUM PHOSP 22MEQ(15MMOLE) in NS 100 ML IV ONE (09:00)
[2022-12-04] MEDS: ENOXAPARIN SOD 40 MG/0.4 ML SYRINGE SC SCH (09:45)
[2022-12-04] MEDS: FOLIC ACID 1 MG TAB PO SCH (09:47)
[2022-12-04] MEDS: POLYETHYLENE GLYCOL 17 GM PWDR PO SCH ×2 (09:47→21:05)
[2022-12-04] MEDS: PANTOPRAZOLE 40 MG TAB PO SCH (09:47)
[2022-12-04] MEDS: ERTAPENEM SOD INJ 1 GM in SODIUM CHL 0.9% 50 ML IV SCH (11:01)
[2022-12-04] MEDS: ONDANSETRON HCL 4 MG/2 ML VIAL IV PRN (11:12)
[2022-12-04] MEDS ORDERED: PPN PER PHARMACY IV NR ×10 (20:00)
[2022-12-04] MEDS: SENNA 8.6 MG TAB PO SCH (21:05)
[2022-12-05] MEDS: InsuLIN REG 1unit/0.01ml Soln (100units/ml) SC SCH ×4 (00:01→17:47)
[2022-12-05 05:00] VITALS: BP 138/79
[2022-12-05] MEDS: MORPHINE SULFATE INJ 2 MG/ml SYRG IV PRN ×4 (05:04→21:24)
[2022-12-05] MEDS: ACCU-CHEK COMFORT CURVE STRIP VI SCH ×4 (05:31→17:46)
[2022-12-05] MEDS: DOCUSATE SOD 100 MG CAP PO SCH ×3 (05:32→21:40)
[2022-12-05 07:17] LABS: Basophils # (auto) 0 10 ^3/uL (0-0.2); Eosinophils # (auto) 0 10 ^3/uL (0-0.8); Hemoglobin 7.5 g/dL (12.2-16.2); Mean Corpuscular Volume 79.6 fL (80.0-100.0); Monocytes # (auto) 0.9 10 ^3/uL (0-1.3)
[2022-12-05 07:19] LABS: Basophils % (auto) 0.1 % (0.0-2.0); Eosinophils % (auto) 0.1 % (0.0-7.0); Hematocrit 24.7 % (36.0-46.0); Lymphocytes # (auto) 1.6 10 ^3/uL (0.4-5.4); Lymphocytes % (auto) 10.8 % (10.0-50.0); Mean Corpuscular Hemoglobin 24.3 pg (28.0-32.0); Mean Corpuscular Hgb Conc. 30.5 g/dL (32.0-36.0); Monocytes % (auto) 6.1 % (0.0-12.0); Neutrophils # (auto) 12.6 10 ^3/uL (1.6-8.6); Neutrophils % (auto) 82.9 % (37.0-80.0); Red Blood Cells 3.11 10^6/uL (4.0-5.20); Red Cell Distribution Width 19.4 % (11.8-14.3); White Blood Cell 15.2 10^3/uL (4.4-10.8)
[2022-12-05 07:23] LABS: Potassium 3.5 mmol/L (3.5-5.1)
[2022-12-05 07:38] LABS: Albumin 1.3 g/dL (3.4-5.0); BUN/Creatinine Ratio 27.9 (10.0-20.0); Bilirubin, Total 0.2 mg/dL (0.2-1.0); Calcium 8.4 mg/dL (8.5-10.1); Magnesium 2.3 mg/dL (1.6-2.6); Phosphorus 2.7 mg/dL (2.5-4.90); Total Protein 6.2 g/dL (6.4-8.2)
[2022-12-05] MEDS: VANCOMYCIN 500 MG in D5W 5% 100 ML IV SCH (08:32)
[2022-12-05] MEDS: FERROUS SULFATE 325mg EC TAB PO SCH ×3 (08:33→17:48)
[2022-12-05 09:06] VITALS: BP 149/99
[2022-12-05] MEDS: FOLIC ACID 1 MG TAB PO SCH (09:49)
[2022-12-05] MEDS: POLYETHYLENE GLYCOL 17 GM PWDR PO SCH ×2 (09:49→21:40)
[2022-12-05] MEDS: ENOXAPARIN SOD 40 MG/0.4 ML SYRINGE SC SCH (09:50)
[2022-12-05] MEDS: PANTOPRAZOLE 40 MG TAB PO SCH (09:50)
[2022-12-05] MEDS: ERTAPENEM SOD INJ 1 GM in SODIUM CHL 0.9% 50 ML IV SCH (09:54)
[2022-12-05 12:43] VITALS: BP 144/91
[2022-12-05 16:52] VITALS: BP 144/91
[2022-12-05] MEDS ORDERED: PPN PER PHARMACY IV NR ×11 (20:00)
[2022-12-05] MEDS: SENNA 8.6 MG TAB PO SCH (21:40)
[2022-12-05 22:00] VITALS: BP 149/89
[2022-12-06] MEDS: InsuLIN REG 1unit/0.01ml Soln (100units/ml) SC SCH ×4 (00:39→19:02)
[2022-12-06] MEDS: ACCU-CHEK COMFORT CURVE STRIP VI SCH ×4 (00:39→19:01)
[2022-12-06] MEDS: MORPHINE SULFATE INJ 2 MG/ml SYRG IV PRN ×3 (01:35→16:54)
[2022-12-06 05:00] VITALS: BP 151/85
[2022-12-06] MEDS: DOCUSATE SOD 100 MG CAP PO SCH ×2 (05:39→14:00)
[2022-12-06 05:52] LABS: Albumin 1.3 g/dL (3.4-5.0); Calcium 8.2 mg/dL (8.5-10.1); Magnesium 2.2 mg/dL (1.6-2.6); Potassium 3.5 mmol/L (3.5-5.1)
[2022-12-06 05:57] LABS: BUN/Creatinine Ratio 35.1 (10.0-20.0); Bilirubin, Total 0.2 mg/dL (0.2-1.0); Phosphorus 2.5 mg/dL (2.5-4.90)
[2022-12-06] MEDS ORDERED: VANCOMYCIN 750mg/250ml 250 ML IV SCH (08:00)
[2022-12-06] MEDS: FERROUS SULFATE 325mg EC TAB PO SCH ×3 (08:00→18:00)
[2022-12-06] MEDS: FOLIC ACID 1 MG TAB PO SCH (08:38)
[2022-12-06] MEDS: PANTOPRAZOLE 40 MG TAB PO SCH (08:39)
[2022-12-06] MEDS: POLYETHYLENE GLYCOL 17 GM PWDR PO SCH (08:39)
[2022-12-06] MEDS: ENOXAPARIN SOD 40 MG/0.4 ML SYRINGE SC SCH (08:45)
[2022-12-06 09:00] VITALS: BP 139/70
[2022-12-06] MEDS: ERTAPENEM SOD INJ 1 GM in SODIUM CHL 0.9% 50 ML IV SCH (10:00)
[2022-12-06 13:00] VITALS: BP 156/93
[2022-12-06 16:58] VITALS: BP 139/84
[2022-12-06] MEDS ORDERED: PPN PER PHARMACY IV NR ×11 (20:00)
[2022-12-06 22:00] VITALS: BP 156/88
== END 2022-12-06 21:05 | disposition hospice, home (50) | DRG 871 ==
LOC: ER 19:26 → EDBD 19:26 → OVERFLOW 11-28 06:37 → CENTRAL 11-28 21:15 → TELE-CENTR 12-02 10:35
PROVIDERS: ADMIT Nurse Practitioner; ATTEND Internal Medicine
PROC: 30233N1 Transfusion of Nonautologous Red Blood Cells into Peripheral Vein, Percutaneous Approach (ICD-10-PCS; principal; 2022-11-28)
PROC: 05HF33Z Insertion of Infusion Device into Left Cephalic Vein, Percutaneous Approach (ICD-10-PCS; 2022-11-30)
PROC: B54NZZA Ultrasonography of Left Upper Extremity Veins, Guidance (ICD-10-PCS; 2022-11-30)
DX: A41.9 Sepsis, unspecified organism (principal); K65.1 Peritoneal abscess; N17.9 Acute kidney failure, unspecified; N13.6 Pyonephrosis; Z68.41 Body mass index [BMI] 40.0-44.9, adult; G82.20 Paraplegia, unspecified; E11.9 Type 2 diabetes mellitus without complications; I11.0 Hypertensive heart disease with heart failure; I50.9 Heart failure, unspecified; J44.9 Chronic obstructive pulmonary disease, unspecified; B96.89 Other specified bacterial agents as the cause of diseases classified elsewhere; C55 Malignant neoplasm of uterus, part unspecified; D50.9 Iron deficiency anemia, unspecified; E53.8 Deficiency of other specified B group vitamins; E66.01 Morbid (severe) obesity due to excess calories; N93.9 Abnormal uterine and vaginal bleeding, unspecified; E78.5 Hyperlipidemia, unspecified; F32.9 Major depressive disorder, single episode, unspecified; Z83.3 Family history of diabetes mellitus; K59.00 Constipation, unspecified; Z87.440 Personal history of urinary (tract) infections; Z85.42 Personal history of malignant neoplasm of other parts of uterus; Z74.01 Bed confinement status; Z79.82 Long term (current) use of aspirin; Z79.899 Other long term (current) drug therapy; Z80.1 Family history of malignant neoplasm of trachea, bronchus and lung; Z80.49 Family history of malignant neoplasm of other genital organs; Z82.49 Family history of ischemic heart disease and other diseases of the circulatory system; Z85.118 Personal history of other malignant neoplasm of bronchus and lung
CPT/HCPCS: 36415; 71045; 74018; 74176; 74177; 76856; 80048; 80053; 80202; 81001; 82270; 82607; 82746; 82962; 83540; 83550; 83605; 83690; 83735; 84100; 84478; 84484; 85007; 85014; 85018; 85025; 85027; 85610; 86850; 86900; 86901; 86920; 87040; 87076; 87077; 87086; 87186; 87426; 93005; 93306; 96365; 96366; 96372; 96375; 96376; G0378; J0696; J1335; J1815; J2405; J3480; J7060

== ENCOUNTER 2023-02-04 03:22 | Emergency (ER) | payer OTHER, MEDICAID ==
[~2023-02-04] VITALS: Ht 175.3 cm; Wt 100.0 kg
[~2023-02-04 03:22] MED LIST changes: -AMLO-489 PO; +AMLO1TAB22 PO; +GABA-1254 PO; -GABA300C11 PO; -LEVO-28 PO; +LEVO500T91 PO; +LORA-1121 PO; -LORA0.5T20 PO; -PROG1CAP2 PO; +PROG200C21 PO; +PROM25TA10 PO; -PROM25TA5 PO
[2023-02-04 03:51] VITALS: BP 0/0
== END 2023-02-04 06:19 ==
LOC: EDBD 03:22 → ER 03:22 → EDUNIT# 03:22 → ER 06:19
DX: I46.9 Cardiac arrest, cause unspecified (principal); J44.9 Chronic obstructive pulmonary disease, unspecified; E11.9 Type 2 diabetes mellitus without complications; I11.0 Hypertensive heart disease with heart failure; I50.89 Other heart failure; Z79.899 Other long term (current) drug therapy; Z79.82 Long term (current) use of aspirin; Z98.890 Other specified postprocedural states
CPT/HCPCS: 31500; 92950